=== PATIENT | male | born 1940 | race Caucasian/White ===

== ENCOUNTER 2022-06-01 14:37 | Emergency (ER) | payer MEDICARE, SELFPAY ==
[2022-06-01] VITALS (21 sets, daily range): BP systolic 121–201; BP diastolic 69–95; PULSE 60–82; RESP 12–24; TEMP 36.6; O2SAT 90–96; BMI 28.2
--- NOTE | 2022-06-01 14:49 | DI.RAD.S_ITS ---
PROCEDURE: XR CHEST 1V INDICATIONS: Possible stroke TECHNIQUE: One view of the chest was acquired. COMPARISON: None. FINDINGS: Surgical changes and devices: None. Lungs and pleura: There is mild pulmonary vascular congestion. No definite focal infiltrate. No pleural effusions or pneumothorax. Mediastinum: Mildly tortuous thoracic aorta is seen. Heart size is enlarged Bones and chest wall: No suspicious bony lesions. Overlying soft tissues appear unremarkable. IMPRESSION: Cardiomegaly and mild congestion. No focal infiltrate, pleural effusion or pneumothorax. Dictated by: Mau Raza M.D. on 06/01/2022 at 15:39 Approved by: Mau Raza M.D. on 06/01/2022 at 15:39
--- NOTE | 2022-06-01 14:50 | DI.CT.S_ITS ---
PROCEDURE: CT HEAD/BRAIN WO CON INDICATIONS: vomiting/ h/o CVA TECHNIQUE: Noncontrast 4.5 mm thick angled axial sections acquired from the foramen magnum to the vertex, with coronal and sagittal reformats. For radiation dose reduction, the following was used: automated exposure control, adjustment of mA and/or kV according to patient size. COMPARISON: None. FINDINGS: Image quality: Excellent. CSF spaces: Basal cisterns are patent. No extra-axial fluid collections. Ventricles are normal in size and shape. Brain: Atrophy and chronic white matter ischemic change noted. There is encephalomalacia and gliosis noted in the right occipital lobe. No mass effect or midline shift present. No intracranial hemorrhage. Old lacunar infarct noted in the left globus pallidus. Atherosclerotic calcification noted in both cavernous ICA as well as intradural vertebral arteries Skull and face: Calvarium and visualized facial bones are intact, without suspicious lesions. Sinuses: Mucosal debris and complete opacification noted involving the frontal, ethmoid and sphenoid sinuses with near complete opacification of the bilateral maxillary sinuses, partially imaged. IMPRESSION: 1. Atrophy and chronic ischemic change without intracranial hemorrhage or mass effect. 2. 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 Carlos mucosal sinus disease Approved by: Khai Cabrera M.D. on 06/01/2022 at 15:15
--- NOTE | 2022-06-01 14:53 | DI.RAD.S_ITS ---
PROCEDURE: XR SHOULDER RT MIN 2V INDICATIONS: fall, shoulder pain TECHNIQUE: 3 views of the shoulder were acquired. COMPARISON: None. FINDINGS: Bones: No fractures or dislocations. Moderate acromioclavicular joint and glenohumeral joint osteoarthritic changes are seen. No suspicious bony lesions. Visualized ribs appear intact. Soft tissues: No suspicious soft tissue calcifications. IMPRESSION: Moderate right shoulder joint osteoarthritis. No acute shoulder fracture or dislocation. No gross soft tissue abnormalities. Dictated by: Mau Raza M.D. on 06/01/2022 at 15:39 Approved by: Mau Raza M.D. on 06/01/2022 at 15:39
--- NOTE | 2022-06-01 14:54 | DI.CT.S_ITS ---
PROCEDURE: CT CERVICAL SPINE WO CON INDICATIONS: recent falls / vomiting TECHNIQUE: Noncontrast 3 mm thick sections acquired from the skull base to the T4 level. Sagittal and coronal reformats were then constructed. For radiation dose reduction, the following was used: automated exposure control, adjustment of mA and/or kV according to patient size. COMPARISON: None. FINDINGS: Image quality: Excellent. Bones: C6-7 interbody fusion without instrumentation. C5-6 and C7-T1 disc space narrowing. Hypertrophic facet joints and foraminal stenosis present throughout the exam. No fracture or traumatic malalignment. Craniovertebral relationships and bone mineralization unremarkable Soft tissues: Prevertebral soft tissues are normal in thickness. No paravertebral hematomas. No apical pneumothoraces. IMPRESSION: No evidence of fracture or traumatic malalignment. C6-7 interbody fusion without instrumentation. Associated degenerative disc disease and arthropathy. Approved by: Khai Cabrera M.D. on 06/01/2022 at 14:55
--- NOTE | 2022-06-01 14:57 | PC.NURSE ---
pt reports right sided shoulder pain and falling more often at home.
[2022-06-01 15:09] LABS: Add Manual Diff / Slide Review NO; Basophils Absolute Auto 0 /uL (0-100); Basophils Percent Auto 0.4 % (0-2); Eosinophils Absolute Auto 400 /uL (0-450); Eosinophils Percent Auto 4.2 % (2-4); Hematocrit 39.6 % (41-53); Hemoglobin 13.5 g/dL (13.5-17.5); Lymphocytes Absolute Auto 1400 /uL (1100-4500); Lymphocytes Percent Auto 16.1 % (25-40); Mean Corpuscular HGB Conc 34.1 % (30-36); Mean Corpuscular Hemoglobin 32.5 PG (26-34); Mean Corpuscular Volume 95.3 fL (80-100); Monocytes Absolute Auto 500 /uL (0-900); Monocytes Percent Auto 6.2 % (3-14); Neutrophils Absolute Auto 6500 /uL (1500-7000); Neutrophils Percent Auto 73.1 % (50-75); Platelet Count 197 X10^3/uL (150-400); Red Blood Cell Count 4.16 X10^6/uL (4.5-5.9); Red Cell Distribution Width 13.6 % (11.6-14.8); White Blood Cell Count 8.8 X10^3/uL (4.5-11.0)
[2022-06-01] MEDS: ONDANSETRON 4 MG/2 ML INJ IV (15:09)
[2022-06-01 15:23] LABS: PTT Partial Thromboplastin Tim 31 SECONDS (26-36)
[2022-06-01 16:07] LABS: Alanine Aminotransferase 18 IU/L (<50); Albumin 4.5 g/dL (3.5-5.0); Albumin Globulin Ratio 1.3 (1.0-2.8); Alkaline Phosphatase 55 U/L (38-126); Aspartate Aminotransferase 31 IU/L (17-59); BUN Creatinine Ratio 13.6 (6-22); Bilirubin Total 0.8 mg/dL (0.2-1.3); Blood Urea Nitrogen 8 mg/dL (9-20); Calcium 9.3 mg/dL (8.4-10.2); Carbon Dioxide 25 mmol/L (22-32); Chloride 94 mmol/L (98-107); Creatine Kinase 69 U/L (55-170); Estimated Glomerular Filt Rate > 60 mL/min (>60); Globulin 3.5 g/dL (1.7-4.1); Glucose 145 mg/dL (80-110); Magnesium 1.6 mg/dL (1.6-2.3); Potassium 4.2 mmol/L (3.4-5.1); Sodium 129 mmol/L (137-145)
[2022-06-01 16:09] LABS: HEMOLYSIS 55 (0-50)
[2022-06-01 16:18] LABS: Troponin I < 0.012 ng/mL (0.01-0.034)
--- NOTE | 2022-06-01 17:51 | DI.CT.S_ITS ---
PROCEDURE: CT ABDOMEN PELVIS W CON INDICATIONS: Vomiting TECHNIQUE: After the administration of intravenous contrast, axial sections acquired from the lung bases to the pubic symphysis. Coronal and sagittal reformats were performed. For radiation dose reduction, the following was used: automated exposure control, adjustment of mA and/or kV according to patient size. COMPARISON: None. FINDINGS: Image quality: There is a technical problem and the [id number] does not include the lower pelvis. Lung bases: Clear lung bases. Tiny hiatal hernia. Heart: Hyperdensity at the aortic valve. Coronary artery calcification. ABDOMEN:. Liver: Normal. Gallbladder: Vicarious excretion of contrast in the gallbladder versus dependent hyperdense sludge or stones. No wall thickening. Biliary ducts: Nondilated. Pancreas: Normal. Spleen: Normal size. Adrenal Glands: No nodules. Kidneys and Ureters: Symmetric enhancement. No nephrolithiasis or hydronephrosis. No hydroureter. Tiny left cortical cyst. Stomach and Bowel: The stomach is fluid-filled. No wall thickening or significant perigastric inflammation. No visible obstructing lesion. Small bowel is decompressed. No evidence of obstruction. The appendix is normal. The visible loops of colon are within normal limits. Peritoneum: No abnormal intraperitoneal fluid. No free air. Ventral Wall: No hernias. Abdominal Nodes: No retroperitoneal or mesenteric adenopathy by size criteria. Vessels: Aorta and inferior vena cava are normal in size. Mild abdominal aortic atherosclerotic calcification. PELVIS: Scan was inadvertently terminated early. The visible portion of the upper pelvis demonstrates normal urinary bladder wall thickness. No suspicious mass or adenopathy. Bones: Multilevel degenerative disc and endplate change throughout the spine.. IMPRESSION: 1. Fluid-filled stomach without thickened wall or evidence of bowel obstruction suggests gastroenteritis. 2. Dependent hyperdense sludge, gallstones, or vicarious excretion of IV contrast. Dictated by: Pegyg Novak M.D. on 06/01/2022 at 19:50 Approved by: Peggy Novak M.D. on 06/01/2022 at 19:55
--- NOTE | 2022-06-01 17:58 | ED_ITS ---
HPI - Nausea/Vomiting/Diarrhea <Angel Burgess PA-C - Last Filed: 06/01/22 20:34> General Chief complaint: Nausea/Vomiting/Diarrhea Stated complaint: vomited x 2, gen weakness Time Seen by Provider: 06/01/22 16:03 History of Present Illness HPI Narrative: This is a 81-year-old male presents to the emergency department due to multiple episodes of vomiting earlier today. He states he is concerned as that the patient had a stroke 3 years ago which presented only as vomiting causing him to be concerned that he maybe having a stroke today. Denies any chest pain, s hortness of breath, abdominal pain, fevers, dysuria, or any other concerning signs or symptoms. Does state that he has been falling more recently and has recently fallen on his right shoulder. Denies any residual deficits from the stroke 3 years ago. Related Data Previous Rx's Medication Instructions Recorded ondansetron 4 mg disintegrating 4 mg PO Q8H PRN nausea and 06/01/22 tablet vomiting #20 tabs Review of Systems <Angel Burgess PA-C - Last Filed: 06/01/22 20:34> Review of Systems Narrative: GENERAL: Denies chills, fatigue, malaise, fever, sweats. HEENT: Denies sinus pain, ear pain, sore throat, difficulty swallowing, dizziness. RESPIRATORY: Denies dyspnea, cough, wheezing, hemoptysis, sputum. CARDIOVASCULAR: Denies chest pain, palpitations, orthopnea, edema, GASTROINTESTINAL: Reports nausea, vomiting : Denies dysuria, frequency, incontinence, hematuria, urinary retention. MUSCULOSKELETAL: Reports right shoulder pain SKIN: Denies rash, skin lesions, or other NEUROLOGIC: Denies weakness, headache, numbness, change in speech, confusion, seizures, incoordination. PSYCHIATRIC: No concerning psychosocial issues. 12 point review of systems is negative except for those stated above Exam <Angel Burgess PA-C - Last Filed: 06/01/22 20:34> Narrative Exam Narrative: GENERAL: Well-developed patient, in mild distress. HEAD: Atraumatic. Normocephalic. EYES: Pupils equal round and reactive. Extraocular motions intact. No scleral icterus. No injection or drainage. ENT: Nose without bleeding, purulent drainage. Throat without erythema, tonsillar hypertrophy or exudate. Airway patent. NECK: Trachea midline. Non tender CARDIOVASCULAR: Regular rate and rhythm without murmurs, gallops, or rubs. RESPIRATORY: Clear to auscultation. Breath sounds equal bilaterally. No wheezes, rales, or rhonchi. GASTROINTESTINAL: Abdomen soft, non-tender, nondistended. EXTREMITIES: Moderate tenderness to palpation to right shoulder BACK: Nontender without deformity or crepitance. No flank tenderness. NEURO: AOx3. Cranial nerves 2-12 SKIN: No rash or erythema of visible areas Initial Vital Signs Initial Vital Signs: Vital Signs Temperature 97.9 F 06/01/22 14:42 Pulse Rate 62 06/01/22 14:42 Respiratory Rate 16 06/01/22 14:42 Blood Pressure 145/95 H 06/01/22 14:42 Pulse Oximetry 91 06/01/22 14:42 Oxygen Delivery Method Room Air 06/01/22 14:42 <Diya Snyder DO - Last Filed: 06/02/22 08:31> Initial Vital Signs Initial Vital Signs: Vital Signs Temperature 97.9 F 06/01/22 14:42 Pulse Rate 62 06/01/22 14:42 Respiratory Rate 16 06/01/22 14:42 Blood Pressure 145/95 H 06/01/22 14:42 Pulse Oximetry 91 06/01/22 14:42 Oxygen Delivery Method Room Air 06/01/22 14:42 Course <Angel Burgess PA-C - Last Filed: 06/01/22 20:34> Orders Ordered: Discontinued Medications Ondansetron HCl (Ondansetron 4 Mg Odt) 4 mg SL NOW PRN PRN Reason: Nausea And Vomiting Ondansetron HCl (Ondansetron 4 Mg/2 Ml Inj) 4 mg IV NOW PRN PRN Reason: Nausea And Vomiting Last Admin: 06/01/22 15:09 Dose: 4 mg Documented By: KOSTA Ondansetron HCl (Ondansetron 4 Mg Odt Prepack) 1 bottle MIS SEEINSTR ONE Stop: 06/01/22 21:23 Last Admin: 06/01/22 21:26 Dose: 1 bottle Documented By: MARGA Vital Signs Vital signs: Vital Signs - 8 hr 06/01/22 14:42 06/01/22 14:43 06/01/22 15:24 Temperature 97.9 F Pulse Rate 62 82 66 Respiratory Rate 16 19 Blood Pressure 145/95 H Pulse Oximetry 91 95 96 Oxygen Delivery Method Room Air Room Air 06/01/22 15:30 06/01/22 15:53 06/01/22 15:53 Temperature Pulse Rate 68 64 Respiratory Rate 23 21 Blood Pressure 201/89 H Pulse Oximetry 95 95 Oxygen Delivery Method 06/01/22 16:00 06/01/22 16:30 06/01/22 16:39 Temperature Pulse Rate 63 62 62 Respiratory Rate 22 18 21 Blood Pressure Pulse Oximetry 95 94 92 Oxygen Delivery Method 06/01/22 16:39 06/01/22 17:00 06/01/22 17:01 Temperature Pulse Rate 60 Respiratory Rate 16 Blood Pressure 154/69 H 192/81 H Pulse Oximetry 92 Oxygen Delivery Method 06/01/22 17:01 06/01/22 17:30 06/01/22 17:31 Temperature Pulse Rate 61 64 61 Respiratory Rate 12 22 20 Blood Pressure Pulse Oximetry 90 L 93 93 Oxygen Delivery Method 06/01/22 17:31 06/01/22 18:48 06/01/22 18:51 Temperature Pulse Rate 73 Respiratory Rate Blood Pressure 174/74 H 176/81 H Pulse Oximetry 92 Oxygen Delivery Method 06/01/22 18:51 06/01/22 19:00 Temperature Pulse Rate 73 74 Respiratory Rate 19 15 Blood Pressure Pulse Oximetry 95 95 Oxygen Delivery Method Room Air <Diya Snyder DO - Last Filed: 06/02/22 08:31> Orders Ordered: Discontinued Medications Ondansetron HCl (Ondansetron 4 Mg Odt) 4 mg SL NOW PRN PRN Reason: Nausea And Vomiting Ondansetron HCl (Ondansetron 4 Mg/2 Ml Inj) 4 mg IV NOW PRN PRN Reason: Nausea And Vomiting Last Admin: 06/01/22 15:09 Dose: 4 mg Documented By: KOSTA Ondansetron HCl (Ondansetron 4 Mg Odt Prepack) 1 bottle MISC SEEINSTR ONE Stop: 06/01/22 21:23 Last Admin: 06/01/22 21:26 Dose: 1 bottle Documented By: MARGA Vital Signs Vital signs: Vital Signs - 8 hr 06/01/22 14:42 06/01/22 14:43 06/01/22 15:24 Temperature 97.9 F Pulse Rate 62 82 66 Respiratory Rate 16 19 Blood Pressure 145/95 H Pulse Oximetry 91 95 96 Oxygen Delivery Method Room Air Room Air 06/01/22 15:30 06/01/22 15:53 06/01/22 15:53 Temperature Pulse Rate 68 64 Respiratory Rate 23 21 Blood Pressure 201/89 H Pulse Oximetry 95 95 Oxygen Delivery Method 06/01/22 16:00 06/01/22 16:30 06/01/22 16:39 Temperature Pulse Rate 63 62 62 Respiratory Rate 22 18 21 Blood Pressure Pulse Oximetry 95 94 92 Oxygen Delivery Method 06/01/22 16:39 06/01/22 17:00 06/01/22 17:01 Temperature Pulse Rate 60 Respiratory Rate 16 Blood Pressure 154/69 H 192/81 H Pulse Oximetry 92 Oxygen Delivery Method 06/01/22 17:01 06/01/22 17:30 06/01/22 17:31 Temperature Pulse Rate 61 64 61 Respiratory Rate 12 22 20 Blood Pressure Pulse Oximetry 90 L 93 93 Oxygen Delivery Method 06/01/22 17:31 06/01/22 18:48 06/01/22 18:51 Temperature Pulse Rate 73 Respiratory Rate Blood Pressure 174/74 H 176/81 H Pulse Oximetry 92 Oxygen Delivery Method 06/01/22 18:51 06/01/22 19:00 Temperature Pulse Rate 73 74 Respiratory Rate 19 15 Blood Pressure Pulse Oximetry 95 95 Oxygen Delivery Method Room Air MDM - Nausea/Vomiting/Diarrhea <Angel Burgess PA-C - Last Filed: 06/01/22 20:34> Lab Data 06/01/22 14:44 06/01/22 15:49 Labs: Lab Results 06/01/22 06/01/22 06/01/22 Range/Units 14:44 14:44 15:49 WBC 8.8 (4.5-11.0) X10^3/uL RBC 4.16 L (4.5-5.9) X10^6/uL Hgb 13.5 (13.5-17.5) g/dL Hct 39.6 L (41-53) % MCV 95.3 (80-100) fL MCH 32.5 (26-34) PG MCHC 34.1 (30-36) % RDW 13.6 (11.6-14.8) % Plt Count 197 (150-400) X10^3/uL Neut % (Auto) 73.1 (50-75) % Lymph % (Auto) 16.1 L (25-40) % [place] % (Auto) 6.2 (3-14) % Eos % (Auto) 4.2 H (2-4) % Baso % (Auto) 0.4 (0-2) % Neut # (Auto) 6500 (4859-3226) /uL Lymph # (Auto) 1400 (9316-7445) /uL [place] # (Auto) 500 (0-900) /uL Eos # (Auto) 400 (0-450) /uL Baso # (Auto) 0 (0-100) /uL PT 12.0 (10.1-12.7) SECONDS INR 1.0 (0.9-1.3) APTT 31 (26-36) SECONDS Sodium 129 L (137-145) mmol/L Potassium 4.2 (3.4-5.1) mmol/L Chloride 94 L (98-107) mmol/L Carbon Dioxide 25 (22-32) mmol/L BUN 8 L (9-20) mg/dL Creatinine 0.59 L (0.66-1.25) mg/dL Estimated GFR > 60 (>60) mL/min BUN/Creatinine Ratio 13.6 (6-22) Glucose 145 H (80-110) mg/dL Lactate (0.7-2.1) mmol/L Calcium 9.3 (8.4-10.2) mg/dL Magnesium 1.6 (1.6-2.3) mg/dL Total Bilirubin 0.8 (0.2-1.3) mg/dL AST 31 (17-59) IU/L ALT 18 (<50) IU/L Alkaline Phosphatase 55 (38-126) U/L Total Creatine Kinase 69 (55-170) U/L CK-MB (CK-2) TNP CK-MB (CK-2) Rel Index TNP Troponin I < 0.012 (0.01-0.034) ng/mL Total Protein 8.0 (6.3-8.2) g/dL Albumin 4.5 (3.5-5.0) g/dL Globulin 3.5 (1.7-4.1) g/dL Albumin/Globulin Ratio 1.3 (1.0-2.8) Lipase (23-300) U/L Urine Color Urine Appearance Urine pH (4.5-8.0) Ur Specific [place] (1.000-1.035) Urine Protein (Negative) Urine Glucose (UA) (Negative) g/dL Urine Ketones (NEGATIVE) Urine Occult Blood (Negative) Urine Nitrate (Negative) Urine Bilirubin (NEGATIVE) Urine Urobilinogen (0.2) E.U./dL Ur Leukocyte Esterase (NEGATIVE) Urine RBC (0-5/HPF) Urine WBC (0-5/HPF) Ur Squamous Epith Cells (0-5/HPF) Other Crystals Urine Bacteria (None) Ur Culture Indicated? U Opiates 300ng/mL cut (Negative) Ur Oxycodone Screen (Negative) Urine Methadone Screen (Negative) Ur Barbiturates Screen (Negative) U Tricyclic Antidepress (Negative) Ur Phencyclidine Scrn (Negative) Ur Amphetamines Screen (Negative) U Methamphetamines Scrn (Negative) Ur MDMA Scrn (Ecstasy) (Negative) U Benzodiazepines Scrn (Negative) Urine Cocaine Screen (Negative) U Marijuana (THC) Screen (Negative) SARS-CoV-2 (PCR) (Negative) Influenza A (RT-PCR) (NEGATIVE) Influenza B (RT-PCR) (NEGATIVE) RSV (PCR) (Negative) 06/01/22 06/01/22 06/01/22 Range/Units 18:40 18:40 18:40 WBC (4.5-11.0) X10^3/uL RBC (4.5-5.9) X10^6/uL Hgb (13.5-17.5) g/dL Hct (41-53) % MCV (80-100) fL MCH (26-34) PG MCHC (30-36) % RDW (11.6-14.8) % Plt Count (150-400) X10^3/uL Neut % (Auto) (50-75) % Lymph % (Auto) (25-40) % [place] % (Auto) (3-14) % Eos % (Auto) (2-4) % Baso % (Auto) (0-2) % Neut # (Auto) (3920-7963) /uL Lymph # (Auto) (6904-3610) /uL [place] # (Auto) (0-900) /uL Eos # (Auto) (0-450) /uL Baso # (Auto) (0-100) /uL PT (10.1-12.7) SECONDS INR (0.9-1.3) APTT (26-36) SECONDS Sodium (137-145) mmol/L Potassium (3.4-5.1) mmol/L Chloride (98-107) mmol/L Carbon Dioxide (22-32) mmol/L BUN (9-20) mg/dL Creatinine (0.66-1.25) mg/dL Estimated GFR (>60) mL/min BUN/Creatinine Ratio (6-22) Glucose (80-110) mg/dL Lactate 1.4 (0.7-2.1) mmol/L Calcium (8.4-10.2) mg/dL Magnesium (1.6-2.3) mg/dL Total Bilirubin (0.2-1.3) mg/dL AST (17-59) IU/L ALT (<50) IU/L Alkaline Phosphatase (38-126) U/L Total Creatine Kinase (55-170) U/L CK-MB (CK-2) CK-MB (CK-2) Rel Index Troponin I < 0.012 (0.01-0.034) ng/mL Total Protein (6.3-8.2) g/dL Albumin (3.5-5.0) g/dL Globulin (1.7-4.1) g/dL Albumin/Globulin Ratio (1.0-2.8) Lipase 108 (23-300) U/L Urine Color Urine Appearance Urine pH (4.5-8.0) Ur Specific [place] (1.000-1.035) Urine Protein (Negative) Urine Glucose (UA) (Negative) g/dL Urine Ketones (NEGATIVE) Urine Occult Blood (Negative) Urine Nitrate (Negative) Urine Bilirubin (NEGATIVE) Urine Urobilinogen (0.2) E.U./dL Ur Leukocyte Esterase (NEGATIVE) Urine RBC (0-5/HPF) Urine WBC (0-5/HPF) Ur Squamous Epith Cells (0-5/HPF) Other Crystals Urine Bacteria (None) Ur Culture Indicated? U Opiates 300ng/mL cut (Negative) Ur Oxycodone Screen (Negative) Urine Methadone Screen (Negative) Ur Barbiturates Screen (Negative) U Tricyclic Antidepress (Negative) Ur Phencyclidine Scrn (Negative) Ur Amphetamines Screen (Negative) U Methamphetamines Scrn (Negative) Ur MDMA Scrn (Ecstasy) (Negative) U Benzodiazepines Scrn (Negative) Urine Cocaine Screen (Negative) U Marijuana (THC) Screen (Negative) SARS-CoV-2 (PCR) Negative (Negative) Influenza A (RT-PCR) Flu a negative (NEGATIVE) Influenza B (RT-PCR) Flu b negative (NEGATIVE) RSV (PCR) Negative (Negative) 06/01/22 06/01/22 Range/Units 19:15 19:15 WBC (4.5-11.0) X10^3/uL RBC (4.5-5.9) X10^6/uL Hgb (13.5-17.5) g/dL Hct (41-53) % MCV (80-100) fL MCH (26-34) PG MCHC (30-36) % RDW (11.6-14.8) % Plt Count (150-400) X10^3/uL Neut % (Auto) (50-75) % Lymph % (Auto) (25-40) % [place] % (Auto) (3-14) % Eos % (Auto) (2-4) % Baso % (Auto) (0-2) % Neut # (Auto) (2256-1661) /uL Lymph # (Auto) (6022-5773) /uL [place] # (Auto) (0-900) /uL Eos # (Auto) (0-450) /uL Baso # (Auto) (0-100) /uL PT (10.1-12.7) SECONDS INR (0.9-1.3) APTT (26-36) SECONDS Sodium (137-145) mmol/L Potassium (3.4-5.1) mmol/L Chloride (98-107) mmol/L Carbon Dioxide (22-32) mmol/L BUN (9-20) mg/dL Creatinine (0.66-1.25) mg/dL Estimated GFR (>60) mL/min BUN/Creatinine Ratio (6-22) Glucose (80-110) mg/dL Lactate (0.7-2.1) mmol/L Calcium (8.4-10.2) mg/dL Magnesium (1.6-2.3) mg/dL Total Bilirubin (0.2-1.3) mg/dL AST (17-59) IU/L ALT (<50) IU/L Alkaline Phosphatase (38-126) U/L Total Creatine Kinase (55-170) U/L CK-MB (CK-2) CK-MB (CK-2) Rel Index Troponin I (0.01-0.034) ng/mL Total Protein (6.3-8.2) g/dL Albumin (3.5-5.0) g/dL Globulin (1.7-4.1) g/dL Albumin/Globulin Ratio (1.0-2.8) Lipase (23-300) U/L Urine Color Yellow Urine Appearance Sl cloudy Urine pH 8.0 (4.5-8.0) Ur Specific [place] 1.015 (1.000-1.035) Urine Protein Negative (Negative) Urine Glucose (UA) Negative (Negative) g/dL Urine Ketones Trace H (NEGATIVE) Urine Occult Blood Negative (Negative) Urine Nitrate Negative (Negative) Urine Bilirubin Negative (NEGATIVE) Urine Urobilinogen 0.2 (0.2) E.U./dL Ur Leukocyte Esterase Negative (NEGATIVE) Urine RBC 0-1/hpf (0-5/HPF) Urine WBC 0-1/hpf (0-5/HPF) Ur Squamous Epith Cells None seen (0-5/HPF) Other Crystals 2+ amorphous Urine Bacteria None seen (None) Ur Culture Indicated? Cult not indicated U Opiates 300ng/mL cut Negative (Negative) Ur Oxycodone Screen Negative (Negative) Urine Methadone Screen Negative (Negative) Ur Barbiturates Screen Negative (Negative) U Tricyclic Antidepress Negative (Negative) Ur Phencyclidine Scrn Negative (Negative) Ur Amphetamines Screen Negative (Negative) U Methamphetamines Scrn Negative (Negative) Ur MDMA Scrn (Ecstasy) Negative (Negative) U Benzodiazepines Scrn Negative (Negative) Urine Cocaine Screen Negative (Negative) U Marijuana (THC) Screen Negative (Negative) SARS-CoV-2 (PCR) (Negative) Influenza A (RT-PCR) (NEGATIVE) Influenza B (RT-PCR) (NEGATIVE) RSV (PCR) (Negative) Point of Care Testing Glucose POC [address] scan - head: Radiologist's Impression: PROCEDURE: CT HEAD/BRAIN WO CON INDICATIONS: vomiting/ h/o CVA TECHNIQUE: Noncontrast 4.5 mm thick angled axial sections acquired from the foramen magnum to the vertex, with coronal and sagittal reformats. For radiation dose reduction, the following was used: automated exposure control, adjustment of mA and/or kV according to patient size. COMPARISON: None. FINDINGS: Image quality: Excellent. CSF spaces: Basal cisterns are patent. No extra-axial fluid collections. Ventricles are normal in size and shape. Brain: Atrophy and chronic white matter ischemic change noted. There is encephalomalacia and gliosis noted in the right occipital lobe. No mass effect or midline shift present. No intracranial hemorrhage. Old lacunar infarct noted in the left globus pallidus. Atherosclerotic calcification noted in both cavernous ICA as well as intradural vertebral arteries Skull and face: Calvarium and visualized facial bones are intact, without suspicious lesions. Sinuses: Mucosal debris and complete opacification noted involving the frontal, ethmoid and sphenoid sinuses with near complete opacification of the bilateral maxillary sinuses, partially imaged. IMPRESSION: 1. Atrophy and chronic ischemic change without intracranial hemorrhage or mass effect. 2. 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 Carlos mucosal sinus disease Approved by: Khai Cabrera M.D. on 06/01/2022 at 15:15 CT - cervical spine: Radiologist's Impression: [address] Scan ReportSigned Patient: Mando FieldsMR#: [id number]: 3Acct:[id number]/Sex: 81 / MDate of Service: 06/01/22Loc: EDAccession Number: [id number] Procedure: CT cervical spine wo con Ordering Provider: Diya Snyder D.O. PROCEDURE: CT CERVICAL SPINE WO CON INDICATIONS: recent falls / vomiting TECHNIQUE: Noncontrast 3 mm thick sections acquired from the skull base to the T4 level. Sagittal and coronal reformats were then constructed. For radiation dose reduction, the following was used: automated exposure control, adjustment of mA and/or kV according to patient size. COMPARISON: None. FINDINGS: Image quality: Excellent. Bones: C6-7 interbody fusion without instrumentation. C5-6 and C7-T1 disc spa ce narrowing. Hypertrophic facet joints and foraminal stenosis present throughout the exam. No fracture or traumatic malalignment. Craniovertebral relationships and bone mineralization unremarkable Soft tissues: Prevertebral soft tissues are normal in thickness. No paravertebral hematomas. No apical pneumothoraces. IMPRESSION: No evidence of fracture or traumatic malalignment. C6-7 interbody fusion without instrumentation. Associated degenerative disc disease and arthropathy. Extremity x-ray #1: Radiologist's Impression: [address] [id number] ReportSigned Patient: Mando FieldsMR#: [id number]: 1940t:[id number]/Sex: 81 / MDate of Service: 06/01/22Loc: EDAccession Number: [id number] Procedure: XR shoulder RT min 2V Ordering Provider: Diya Snyder D.O. PROCEDURE: XR SHOULDER RT MIN 2V INDICATIONS: fall, shoulder pain TECHNIQUE: 3 views of the shoulder were acquired. COMPARISON: None. FINDINGS: Bones: No fractures or dislocations. Moderate acromioclavicular joint and glenohumeral joint osteoarthritic changes are seen. No suspicious bony lesions. Visualized ribs appear intact. Soft tissues: No suspicious soft tissue calcifications. IMPRESSION: Moderate right shoulder joint osteoarthritis. No acute shoulder fracture or dislocation. No gross soft tissue abnormalities. Dictated by: Mau Raza M.D. on 06/01/2022 at 15:39 Approved by: Mau Raza M.D. on 06/01/2022 at 15:39 Chest x-ray: Radiologist's Impression: [address] [id number] ReportSigned Patient: Mando Fields#: [id number]: 1940cct:[id number]/Sex: 81 / MDate of Service: 06/01/22Loc: EDAccession Number: [id number] Procedure: XR chest 1V Ordering Provider: Diya Snyder D.O. PROCEDURE: XR CHEST 1V INDICATIONS: Possible stroke TECHNIQUE: One view of the chest was acquired. COMPARISON: None. FINDINGS: Surgical changes and devices: None. Lungs and pleura: There is mild pulmonary vascular congestion. No definite focal infiltrate. No pleural effusions or pneumothorax. Mediastinum: Mildly tortuous thoracic aorta is seen. Heart size is enlarged Bones and chest wall: No suspicious bony lesions. Overlying soft tissues appear unremarkable. IMPRESSION: Cardiomegaly and mild congestion. No focal infiltrate, pleural effusion or pneumothorax. Dictated by: Mau Raza M.D. on 06/01/2022 at 15:39 Approved by: Mau Raza M.D. on 06/01/2022 at 15:39 CT scan - abdomen/pelvis: Radiologist's Impression: [address] [id number] [address] Scan Report Signed Patient: Mando Fields MR#: [id number] : 1940 Acct:[id number] Age/Sex: 81 / M Date of Service: 06/01/22 Loc: ED Accession Number: [id number] ?? Procedure: CT abdomen pelvis w con Ordering Provider: Angel Burgess P.A-C PROCEDURE:? CT ABDOMEN PELVIS W CON ? INDICATIONS:? Vomiting ? TECHNIQUE:? After the administration of intravenous contrast, axial sections acquired from the lung bases to the pubic symphysis.? Coronal and sagittal reformats were performed.? For radiation dose reduction, the following was used:? automated exposure control, adjustment of mA and/or kV according to patient size.? ? COMPARISON:? None. ? FINDINGS:? Image quality:? There is a technical problem and the [id number] does not include the lower pelvis. ? Lung bases:? Clear lung bases.? Tiny hiatal hernia. Heart:? Hyperdensity at the aortic valve.? Coronary artery calcification. ? ABDOMEN:. Liver:? Normal. Gallbladder:? Vicarious excretion of contrast in the gallbladder versus dependent hyperdense sludge or stones.? No wall thickening. Biliary ducts:? Nondilated. Pancreas:? Normal. Spleen:? Normal size. Adrenal Glands:? No nodules. Kidneys and Ureters: Symmetric enhancement.? No nephrolithiasis or hyd ronephrosis.? No hydroureter.? Tiny left cortical cyst. ? Stomach and Bowel:? The stomach is fluid-filled.? No wall thickening or significant perigastric inflammation.? No visible obstructing lesion.? Small bowel is decompressed.? No evidence of obstruction.? The appendix is normal.? The visible loops of colon are within normal limits. Peritoneum:? No abnormal intraperitoneal fluid.? No free air.? ? Ventral Wall: ? No hernias.? Abdominal Nodes:? No retroperitoneal or mesenteric adenopathy by size criteria.? Vessels:? Aorta and inferior vena cava are normal in size.? Mild abdominal aortic atherosclerotic calcification. ? PELVIS:? Scan was inadvertently terminated early.? The visible portion of the upper pelvis demonstrates normal urinary bladder wall thickness.? No suspicious mass or adenopathy.? ? Bones:? Multilevel degenerative disc and endplate change throughout the spine..? IMPRESSION:? ? 1. Fluid-filled stomach without thickened wall or evidence of bowel obstruction suggests gastroenteritis. ? 2. Dependent hyperdense sludge, gallstones, or vicarious excretion of IV contrast. ? ? Dictated by: Peggy Novak M.D. on 06/01/2022 at 19:50 ? ? Approved by: Peggy Novak M.D. on 06/01/2022 at 19:55 ? ECG Data Interpretation: 1539 EKG is normal sinus rhythm rate 67 beats per minute and free of any signs of ischemia or ectopy. No ST segmental elevation or depression. T-wave inversions in lead 3 1842 EKG is normal sinus rhythm rate 73 and free of any signs of ischemia or ectopy. No ST segmental elevation or depression. T-wave inversions in lead 3, unchanged from prior MDM Narrative Medical decision making narrative: MDM * differential diagnosis includes but not limited to viral URI, COVID-19, CVA, ACS, gastroenteritis, appendicitis, colitis, UTI * Prior records reviewed: Patient has no prior records to review. * My lab interpretation: No leukocytosis, no anemia, patient was mildly hyponatremic although suspect that not hyponatremic enough to cause these symptoms described. UA negative for UTI. Tox screen negative * My imgaing interpretation: Abdomen and pelvis CT positive for gastroenteritis. C-spine CT and head CT were ordered due to possible stroke and reported fall which were both negative for CVA and C-spine injury. Right shoulder x-ray negative for fracture and chest x-ray negative for any other abnormal pathology. * Clinical Decision Rules/Scores evaluated: None * Independent discussions with: None ED Course: This is a 81-year-old male presenting primarily due to 2 episodes of vomiting prior to arrival. Patient was primarily concerned as he report having a stroke 3 years ago that present only as vomiting. CT head was normal and patient had a completely normal neuro exam. Cranial nerves 2-12 intact. Patient's lab work was also not concerning. He did have mild hyponatremia alth ough do not suspect that this was the cause of the patient's vomiting. CT abdomen and pelvis was ordered to further investigate the vomiting which showed evidence of gastroenteritis which maybe the cause. Patient also repeat swelling more often with some right shoulder pain and some neck pain. Right shoulder x- ray and cervical CT were negative for any fractures. Due to lack of fevers or blood in the stool low suspicion for bacterial gastroenteritis. Suspect viral nature which should improve over time. Recommended bland diet and plenty of liquids. Patient was comfortable with the plan. We will be prescribed nausea medication on discharge. Shared Decision Making: Discussed plan with patient and son who were both comfortable with the plan for discharge Social Considerations: None Disposition: Discharged to home <Diya Snyder DO - Last Filed: 06/02/22 08:31> Lab Data Labs: Lab Results 06/01/22 06/01/22 06/01/22 Range/Units 14:44 14:44 15:49 WBC 8.8 (4.5-11.0) X10^3/uL RBC 4.16 L (4.5-5.9) X10^6/uL Hgb 13.5 (13.5-17.5) g/dL Hct 39.6 L (41-53) % MCV 95.3 (80-100) fL MCH 32.5 (26-34) PG MCHC 34.1 (30-36) % RDW 13.6 (11.6-14.8) % Plt Count 197 (150-400) X10^3/uL Neut % (Auto) 73.1 (50-75) % Lymph % (Auto) 16.1 L (25-40) % [place] % (Auto) 6.2 (3-14) % Eos % (Auto) 4.2 H (2-4) % Baso % (Auto) 0.4 (0-2) % Neut # (Auto) 6500 (5423-4666) /uL Lymph # (Auto) 1400 (5274-4767) /uL [place] # (Auto) 500 (0-900) /uL Eos # (Auto) 400 (0-450) /uL Baso # (Auto) 0 (0-100) /uL PT 12.0 (10.1-12.7) SECONDS INR 1.0 (0.9-1.3) APTT 31 (26-36) SECONDS Sodium 129 L (137-145) mmol/L Potassium 4.2 (3.4-5.1) mmol/L Chloride 94 L (98-107) mmol/L Carbon Dioxide 25 (22-32) mmol/L BUN 8 L (9-20) mg/dL Creatinine 0.59 L (0.66-1.25) mg/dL Estimated GFR > 60 (>60) mL/min BUN/Creatinine Ratio 13.6 (6-22) Glucose 145 H (80-110) mg/dL Lactate (0.7-2.1) mmol/L Calcium 9.3 (8.4-10.2) mg/dL Magnesium 1.6 (1.6-2.3) mg/dL Total Bilirubin 0.8 (0.2-1.3) mg/dL AST 31 (17-59) IU/L ALT 18 (<50) IU/L Alkaline Phosphatase 55 (38-126) U/L Total Creatine Kinase 69 (55-170) U/L CK-MB (CK-2) TNP CK-MB (CK-2) Rel Index TNP Troponin I < 0.012 (0.01-0.034) ng/mL Total Protein 8.0 (6.3-8.2) g/dL Albumin 4.5 (3.5-5.0) g/dL Globulin 3.5 (1.7-4.1) g/dL Albumin/Globulin Ratio 1.3 (1.0-2.8) Lipase (23-300) U/L Urine Color Urine Appearance Urine pH (4.5-8.0) Ur Specific [place] (1.000-1.035) Urine Protein (Negative) Urine Glucose (UA) (Negative) g/dL Urine Ketones (NEGATIVE) Urine Occult Blood (Negative) Urine Nitrate (Negative) Urine Bilirubin (NEGATIVE) Urine Urobilinogen (0.2) E.U./dL Ur Leukocyte Esterase (NEGATIVE) Urine RBC (0-5/HPF) Urine WBC (0-5/HPF) Ur Squamous Epith Cells (0-5/HPF) Other Crystals Urine Bacteria (None) Ur Culture Indicated? U Opiates 300ng/mL cut (Negative) Ur Oxycodone Screen (Negative) Urine Methadone Screen (Negative) Ur Barbiturates Screen (Negative) U Tricyclic Antidepress (Negative) Ur Phencyclidine Scrn (Negative) Ur Amphetamines Screen (Negative) U Methamphetamines Scrn (Negative) Ur MDMA Scrn (Ecstasy) (Negative) U Benzodiazepines Scrn (Negative) Urine Cocaine Screen (Negative) U Marijuana (THC) Screen (Negative) SARS-CoV-2 (PCR) (Negative) Influenza A (RT-PCR) (NEGATIVE) Influenza B (RT-PCR) (NEGATIVE) RSV (PCR) (Negative) 06/01/22 06/01/22 06/01/22 Range/Units 18:40 18:40 18:40 WBC (4.5-11.0) X10^3/uL RBC (4.5-5.9) X10^6/uL Hgb (13.5-17.5) g/dL Hct (41-53) % MCV (80-100) fL MCH (26-34) PG MCHC (30-36) % RDW (11.6-14.8) % Plt Count (150-400) X10^3/uL Neut % (Auto) (50-75) % Lymph % (Auto) (25-40) % [place] % (Auto) (3-14) % Eos % (Auto) (2-4) % Baso % (Auto) (0-2) % Neut # (Auto) (3153-3908) /uL Lymph # (Auto) (0590-6383) /uL [place] # (Auto) (0-900) /uL Eos # (Auto) (0-450) /uL Baso # (Auto) (0-100) /uL PT (10.1-12.7) SECONDS INR (0.9-1.3) APTT (26-36) SECONDS Sodium (137-145) mmol/L Potassium (3.4-5.1) mmol/L Chloride (98-107) mmol/L Carbon Dioxide (22-32) mmol/L BUN (9-20) mg/dL Creatinine (0.66-1.25) mg/dL Estimated GFR (>60) mL/min BUN/Creatinine Ratio (6-22) Glucose (80-110) mg/dL Lactate 1.4 (0.7-2.1) mmol/L Calcium (8.4-10.2) mg/dL Magnesium (1.6-2.3) mg/dL Total Bilirubin (0.2-1.3) mg/dL AST (17-59) IU/L ALT (<50) IU/L Alkaline Phosphatase (38-126) U/L Total Creatine Kinase (55-170) U/L CK-MB (CK-2) CK-MB (CK-2) Rel Index Troponin I < 0.012 (0.01-0.034) ng/mL Total Protein (6.3-8.2) g/dL Albumin (3.5-5.0) g/dL Globulin (1.7-4.1) g/dL Albumin/Globulin Ratio (1.0-2.8) Lipase 108 (23-300) U/L Urine Color Urine Appearance Urine pH (4.5-8.0) Ur Specific [place] (1.000-1.035) Urine Protein (Negative) Urine Glucose (UA) (Negative) g/dL Urine Ketones (NEGATIVE) Urine Occult Blood (Negative) Urine Nitrate (Negative) Urine Bilirubin (NEGATIVE) Urine Urobilinogen (0.2) E.U./dL Ur Leukocyte Esterase (NEGATIVE) Urine RBC (0-5/HPF) Urine WBC (0-5/HPF) Ur Squamous Epith Cells (0-5/HPF) Other Crystals Urine Bacteria (None) Ur Culture Indicated? U Opiates 300ng/mL cut (Negative) Ur Oxycodone Screen (Negative) Urine Methadone Screen (Negative) Ur Barbiturates Screen (Negative) U Tricyclic Antidepress (Negative) Ur Phencyclidine Scrn (Negative) Ur Amphetamines Screen (Negative) U Methamphetamines Scrn (Negative) Ur MDMA Scrn (Ecstasy) (Negative) U Benzodiazepines Scrn (Negative) Urine Cocaine Screen (Negative) U Marijuana (THC) Screen (Negative) SARS-CoV-2 (PCR) Negative (Negative) Influenza A (RT-PCR) Flu a negative (NEGATIVE) Influenza B (RT-PCR) Flu b negative (NEGATIVE) RSV (PCR) Negative (Negative) 06/01/22 06/01/22 Range/Units 19:15 19:15 WBC (4.5-11.0) X10^3/uL RBC (4.5-5.9) X10^6/uL Hgb (13.5-17.5) g/dL Hct (41-53) % MCV (80-100) fL MCH (26-34) PG MCHC (30-36) % RDW (11.6-14.8) % Plt Count (150-400) X10^3/uL Neut % (Auto) (50-75) % Lymph % (Auto) (25-40) % [place] % (Auto) (3-14) % Eos % (Auto) (2-4) % Baso % (Auto) (0-2) % Neut # (Auto) (1919-9015) /uL Lymph # (Auto) (5894-4502) /uL [place] # (Auto) (0-900) /uL Eos # (Auto) (0-450) /uL Baso # (Auto) (0-100) /uL PT (10.1-12.7) SECONDS INR (0.9-1.3) APTT (26-36) SECONDS Sodium (137-145) mmol/L Potassium (3.4-5.1) mmol/L Chloride (98-107) mmol/L Carbon Dioxide (22-32) mmol/L BUN (9-20) mg/dL Creatinine (0.66-1.25) mg/dL Estimated GFR (>60) mL/min BUN/Creatinine Ratio (6-22) Glucose (80-110) mg/dL Lactate (0.7-2.1) mmol/L Calcium (8.4-10.2) mg/dL Magnesium (1.6-2.3) mg/dL Total Bilirubin (0.2-1.3) mg/dL AST (17-59) IU/L ALT (<50) IU/L Alkaline Phosphatase (38-126) U/L Total Creatine Kinase (55-170) U/L CK-MB (CK-2) CK-MB (CK-2) Rel Index Troponin I (0.01-0.034) ng/mL Total Protein (6.3-8.2) g/dL Albumin (3.5-5.0) g/dL Globulin (1.7-4.1) g/dL Albumin/Globulin Ratio (1.0-2.8) Lipase (23-300) U/L Urine Color Yellow Urine Appearance Sl cloudy Urine pH 8.0 (4.5-8.0) Ur Specific [place] 1.015 (1.000-1.035) Urine Protein Negative (Negative) Urine Glucose (UA) Negative (Negative) g/dL Urine Ketones Trace H (NEGATIVE) Urine Occult Blood Negative (Negative) Urine Nitrate Negative (Negative) Urine Bilirubin Negative (NEGATIVE) Urine Urobilinogen 0.2 (0.2) E.U./dL Ur Leukocyte Esterase Negative (NEGATIVE) Urine RBC 0-1/hpf (0-5/HPF) Urine WBC 0-1/hpf (0-5/HPF) Ur Squamous Epith Cells None seen (0-5/HPF) Other Crystals 2+ amorphous Urine Bacteria None seen (None) Ur Culture Indicated? Cult not indicated U Opiates 300ng/mL cut Negative (Negative) Ur Oxycodone Screen Negative (Negative) Urine Methadone Screen Negative (Negative) Ur Barbiturates Screen Negative (Negative) U Tricyclic Antidepress Negative (Negative) Ur Phencyclidine Scrn Negative (Negative) Ur Amphetamines Screen Negative (Negative) U Methamphetamines Scrn Negative (Negative) Ur MDMA Scrn (Ecstasy) Negative (Negative) U Benzodiazepines Scrn Negative (Negative) Urine Cocaine Screen Negative (Negative) U Marijuana (THC) Screen Negative (Negative) SARS-CoV-2 (PCR) (Negative) Influenza A (RT-PCR) (NEGATIVE) Influenza B (RT-PCR) (NEGATIVE) RSV (PCR) (Negative) Point of Care Testing Glucose POC 132 ECG Data Interpretation: 1539 EKG is normal sinus rhythm rate 67 beats per minute and free of any signs of ischemia or ectopy. No ST segmental elevation or depression. T-wave inve rsions in lead 3 1842 EKG is normal sinus rhythm rate 73 and free of any signs of ischemia or ectopy. No ST segmental elevation or depression. T-wave inversions in lead 3, unchanged from prior [place]: EKG 1 sinus rhythm T-wave inverted [address] changes otherwise appreciated. No priors for comparison. EKG 2. Rate of 73 OH 196 QRS is 74 QTC of 425. Patient has no dynamic changes appreciated appear similar to prior EKG from earlier today. Discharge Plan Departure Patient Disposition: Home Clinical Impression: Gastroenteritis Instructions: DI for Viral Gastroenteritis -- Adult Activity Restrictions/Additional Instructions: Thank you for coming to the [facility] Emergency Department today. As we discussed your workup was overall very reassuring. CT head showed no abnorma lities in the brain. The neck CT showed no fractures. Right shoulder x-ray was negative for fractures. The chest x-ray negative for pneumonia or any rib fractures. The abdominal CT did show evidence of gastroenteritis which is most likely viral and should improve over the next few days. I recommend a diet with plenty of fluids and a bland diet until you start to feel better. Please take the nausea medication as needed. I sent the prescription to [facility] in [place]. I hope you feel better soon. Prescriptions: New ondansetron 4 mg tablet,disintegrating 4 mg PO Q8H PRN (Reason: nausea and vomiting) Qty: 20 0RF Referrals: Miscellaneous,Doctor, MD [Primary Care Provider] - Stand Alone Forms: Patient Portal/API <Diya Snyder DO - Last Filed: 06/02/22 08:31> Cosign ED Attending Cosbelenature Attestation: I was immediately available in the department for consultation.
[2022-06-01 19:12] LABS: Lactate (Lactic Acid) 1.4 mmol/L (0.7-2.1); Lipase 108 U/L (23-300)
[2022-06-01 19:25] LABS: Troponin I < 0.012 ng/mL (0.01-0.034)
[2022-06-01 19:28] LABS: Influenza A - CEPHEID Flu A NEGATIVE (NEGATIVE); Influenza B - CEPHEID Flu B NEGATIVE (NEGATIVE); Respiratory Syncytial Virus Negative (Negative)
[2022-06-01 19:33] LABS: COVID-19 CEPHEID 4-PLEX PCR Negative (Negative)
[2022-06-01 19:34] LABS: Appearance Urine UA SL CLOUDY; Bilirubin Urine UA NEGATIVE (NEGATIVE); Color Urine UA YELLOW; Glucose Urine UA NEGATIVE (Negative); Ketones Urine UA TRACE (NEGATIVE); Leukocyte Esterase Urine UA NEGATIVE (NEGATIVE); Nitrite Urine UA NEGATIVE (Negative); Occult Blood Urine UA NEGATIVE (Negative); Protein Urine UA NEGATIVE (Negative); Specific Gravity Urine UA 1.015 (1.000-1.035); UR Morphine/Opiate cutoff 300 Negative (Negative); Ur Creatinine Normal (Normal); Ur Specific Gravity Normal (Normal); Urine Amphetamines Negative (Negative); Urine Barbiturates Negative (Negative); Urine Benzodiazepines Negative (Negative); Urine Cocaine Negative (Negative); Urine MDMA Negative (Negative); Urine Methadone Negative (Negative); Urine Methamphetamines Negative (Negative); Urine Oxycodone Negative (Negative); Urine Phencyclidine Negative (Negative); Urine Tetrahydrocannabinol Negative (Negative); Urine Tricyclic Antidepressant Negative (Negative); Urine pH Normal (Normal); Urobilinogen Urine UA 0.2 E.U./dL (0.2)
[2022-06-01 19:43] LABS: Bacteria Urine None Seen; Culture Indicated Urine Cult Not Indicated; RBC Urine 0-1/HPF (0-5/HPF); Squamous Epithelial Cell Urine None Seen (0-5/HPF); WBC Urine 0-1/HPF (0-5/HPF)
[2022-06-01] MEDS: ONDANSETRON 4 MG ODT PREPACK 1 BOTTLE MISC (21:26)
--- NOTE | 2022-06-01 21:26 | PC.NURSE ---
Pt/ Pt's grandson returned to ED as pharmacy was closed. Requested pre pack of zofran. Discussed w/ Dr. Mckeon, ordered, dispensed per policy.
== END 2022-06-01 20:46 | disposition home or self-care (01) ==
PROVIDERS: Emergency Medicine; Emergency Provider Physician Assistant Medical
DX: K52.9 Noninfective gastroenteritis and colitis, unspecified (principal); Z20.822 Contact with and (suspected) exposure to COVID-19
CPT/HCPCS: 0241U; 36415; 70450; 71045; 72125; 73030; 74177; 80053; 80305; 81001; 82550; 82962; 83605; 83690; 83735; 84484; 85025; 85610; 85730; 87040; 93005; 96374; 99284; 99285; J2405; Q9967

== ENCOUNTER 2023-05-04 00:31 | Emergency (ER) | payer MEDICARE, MEDICAID, SELFPAY ==
[2023-05-04 00:34] VITALS: BP 148/84; PULSE 84; RESP 17; TEMP 37.1; O2SAT 98; BMI 25.7
--- NOTE | 2023-05-04 00:37 | DI.RAD.S_ITS ---
PROCEDURE: XR CHEST 1V INDICATIONS: SVT TECHNIQUE: One view of the chest was acquired. COMPARISON: [facility], CR, XR CHEST 1V, 06/01/2022, 14:54. FINDINGS: Surgical changes and devices: None. Lungs and pleura: Linear atelectasis versus scarring within the left lower lung field is stable compared to prior. Lungs are otherwise clear. No pleural effusions or pneumothorax. Mediastinum: Mediastinal contours appear normal. Heart size is mildly enlarged, stable. Bones and chest wall: No suspicious bony lesions. Overlying soft tissues appear unremarkable. IMPRESSION: No acute cardiopulmonary abnormality is seen. Dictated by: Raphael Morrell M.D. on 05/04/2023 at 0:59 Approved by: Raphael Morrell M.D. on 05/04/2023 at 0:59
[2023-05-04 00:48] VITALS: PULSE 80; O2SAT 94
--- NOTE | 2023-05-04 00:51 | ED.GENADULT ---
HPI - General Adult General Chief complaint: Shortness of Breath/Dyspnea Stated complaint: SVT-CP/SOB Time Seen by Provider: 05/04/23 00:37 Source: patient and EMS Mode of arrival: EMS History of Present Illness HPI narrative: Patient is an 82-year-old male. Was at his normal state of health sitting on the couch watching TV this evening when he states that he suddenly felt like his heart was racing. He contacted EMS. When EMS arrived he was found to be tachycardic with a heart rate in the 170s. Patient was given 6 mg of adenosine and afterwards heart rate improved to the low 100s. At the time of my evaluation the patient states that he is asymptomatic. He did have some slight chest discomfort at the time of the palpitations but now that is gone. He states he has had symptoms like this in the past but has never been evaluated as they have all been self-limiting. He denies any new medications. Related Data Previous Rx's Medication Instructions Recorded ondansetron 4 mg disintegrating 4 mg PO Q8H PRN nausea and 06/01/22 tablet vomiting #20 tabs Review of Systems Constitutional Constitutional: Reports system reviewed and no additional complaints, except as documented Cardiovascular Cardiovascular: Reports system reviewed and no additional complaints, except as documented Respiratory Respiratory: Reports system reviewed and no additional complaints, except as documented Integumentary/Breasts Skin/Breast: Reports system reviewed and no additional complaints, except as documented Hematologic/Lymphatic On Anticoagulants: No Patient History Social History Smoking Status: Never smoker Smoking Status: Never smoker alcohol intake frequency: holidays/special occasions only Alcohol type: beer Substance Use Type: does not use Exam Initial Vital Signs Initial Vital Signs: Vital Signs Temperature 98.7 F 05/04/23 00:34 Pulse Rate 84 05/04/23 00:34 Respiratory Rate 17 05/04/23 00:34 Blood Pressure 148/84 H 05/04/23 00:34 Pulse Oximetry 98 05/04/23 00:34 Oxygen Delivery Method Room Air 05/04/23 00:34 Const General: cooperative, comfortable and No ill appearing HENMT Head: normal to inspection and normocephalic Resp Effort & Inspection: normal respiratory effort Auscultation: clear to auscultation bilaterally Cardio Rate: regular rate Rhythm: regular rhythm Skin General: no rashes or lesions noted Neuro General: patient alert, patient awake, patient oriented x3 and moves all extremities Course Orders Ordered: ED Orders 05/04/23 00:35 Complete Blood Count AUTO DIFF Stat Comprehensive Metabolic Panel Stat Lipase Stat Magnesium Stat Troponin & CK Cardiac Panel Stat 05/04/23 00:37 XR chest 1V Stat EKG-12 Lead Stat Vital Signs Vital signs: Vital Signs - 8 hr 05/04/23 00:34 05/04/23 00:48 05/04/23 01:00 Temperature 98.7 F Pulse Rate 84 80 Respiratory Rate 17 Blood Pressure 148/84 H 109/67 Pulse Oximetry 98 94 Oxygen Delivery Method Room Air 05/04/23 01:00 Temperature Pulse Rate 78 Respiratory Rate 23 Blood Pressure Pulse Oximetry 95 Oxygen Delivery Method Medical Decision Making Lab Data Lab results reviewed: Yes I reviewed the patient's lab results. 05/04/23 00:35 05/04/23 00:35 Labs: Lab Results 05/04/23 Range/Units 00:35 WBC 9.6 (4.5-11.0) X10^3/uL RBC 4.25 L (4.5-5.9) X10^6/uL Hgb 13.6 (13.5-17.5) g/dL Hct 40.5 L (41-53) % MCV 95.2 (80-100) fL MCH 32.0 (26-34) PG MCHC 33.6 (30-36) % RDW 14.2 (11.6-14.8) % Plt Count 221 (150-400) X10^3/uL Neut % (Auto) 67.7 (50-75) % Lymph % (Auto) 19.1 L (25-40) % [place] % (Auto) 6.2 (3-14) % Eos % (Auto) 6.1 H (2-4) % Baso % (Auto) 0.9 (0-2) % Neut # (Auto) 6500 (9814-0077) /uL Lymph # (Auto) 1800 (1317-7096) /uL [place] # (Auto) 600 (0-900) /uL Eos # (Auto) 600 H (0-450) /uL Baso # (Auto) 100 (0-100) /uL Sodium 129 L (137-145) mmol/L Potassium 4.2 (3.4-5.1) mmol/L Chloride 96 L (98-107) mmol/L Carbon Dioxide 23 (22-32) mmol/L BUN 9 (9-20) mg/dL Creatinine 0.78 (0.66-1.25) mg/dL Estimated GFR > 60 (>60) mL/min BUN/Creatinine Ratio 11.5 (6-22) Glucose 189 H (80-110) mg/dL Calcium 9.1 (8.4-10.2) mg/dL Magnesium 1.8 (1.6-2.3) mg/dL Total Bilirubin 0.8 (0.2-1.3) mg/dL AST 34 (17-59) IU/L ALT 18 (<50) IU/L Alkaline Phosphatase 46 (38-126) U/L Total Creatine Kinase 92 (55-170) U/L Troponin I < 0.012 (0.01-0.034) ng/mL Total Protein 8.1 (6.3-8.2) g/dL Albumin 4.4 (3.5-5.0) g/dL Globulin 3.7 (1.7-4.1) g/dL Albumin/Globulin Ratio 1.2 (1.0-2.8) Lipase 159 (23-300) U/L Imaging Data Chest x-ray: Radiologist's Impression: PROCEDURE: XR CHEST 1V INDICATIONS: SVT TECHNIQUE: One view of the chest was acquired. COMPARISON: [facility], , XR CHEST 1V, 06/01/2022, 14:54. FINDINGS: Surgical changes and devices: None. Lungs and pleura: Linear atelectasis versus scarring within the left lower lung field is stable compared to prior. Lungs are otherwise clear. No pleural effusions or pneumothorax. Mediastinum: Mediastinal contours appear normal. Heart size is mildly enlarged, stable. Bones and chest wall: No suspicious bony lesions. Overlying soft tissues appear unremarkable. IMPRESSION: No acute cardiopulmonary abnormality is seen. ECG Data Attestation: I personally reviewed and interpreted this ECG as follows: Interpretation: Sinus rhythm Ventricular rate 81 Normal axis Normal QRS Normal QTC No ST T wave changes MDM Narrative Medical decision making narrative: Patient has been asymptomatic here in the emergency department. Has had a normal sinus rhythm and normal blood pressure. Is alert and oriented x3. Labs unremarkable. Chest x-ray is unremarkable. EKG is unremarkable. It appears that the adenosine that the paramedics administered fixed his SVT. I did not see the rhythm strips from the paramedics but they did state that it was a narrow complex tachycardia. Will discharge patient home with instructions to contact his primary provider to discuss the indications for Holter monitor. He was given return precautions. He expressed understanding and agreement. Discharge Plan Departure Patient Disposition: Home Clinical Impression: Paroxysmal supraventricular tachycardia Instructions: DI for Tachycardia Activity Restrictions/Additional Instructions: Your workup in the emergency department is very reassuring. Continue to take all of your medications as directed. Contact your primary care doctor for follow-up to discuss the indications for a Holter monitor. Return to the emergency department for new or worsening symptoms. Prescriptions: No Action ondansetron 4 mg tablet,disintegrating 4 mg PO Q8H PRN (Reason: nausea and vomiting) Qty: 20 0RF Referrals: Miscellaneous,Doctor, [Primary Care Provider] - Stand Alone Forms: Patient Portal/API
[2023-05-04 00:56] LABS: Add Manual Diff / Slide Review NO; Basophils Absolute Auto 100 /uL (0-100); Basophils Percent Auto 0.9 % (0-2); Eosinophils Absolute Auto 600 /uL (0-450); Eosinophils Percent Auto 6.1 % (2-4); Hematocrit 40.5 % (41-53); Hemoglobin 13.6 g/dL (13.5-17.5); Lymphocytes Absolute Auto 1800 /uL (1100-4500); Lymphocytes Percent Auto 19.1 % (25-40); Mean Corpuscular HGB Conc 33.6 % (30-36); Mean Corpuscular Volume 95.2 fL (80-100); Monocytes Absolute Auto 600 /uL (0-900); Monocytes Percent Auto 6.2 % (3-14); Neutrophils Absolute Auto 6500 /uL (1500-7000); Neutrophils Percent Auto 67.7 % (50-75); Platelet Count 221 X10^3/uL (150-400); Red Blood Cell Count 4.25 X10^6/uL (4.5-5.9); Red Cell Distribution Width 14.2 % (11.6-14.8); White Blood Cell Count 9.6 X10^3/uL (4.5-11.0)
[2023-05-04 01:00] VITALS: BP 109/67; PULSE 78; RESP 23; O2SAT 95
[2023-05-04 01:01] LABS: Alanine Aminotransferase 18 IU/L (<50); Albumin 4.4 g/dL (3.5-5.0); Albumin Globulin Ratio 1.2 (1.0-2.8); Alkaline Phosphatase 46 U/L (38-126); Aspartate Aminotransferase 34 IU/L (17-59); BUN Creatinine Ratio 11.5 (6-22); Bilirubin Total 0.8 mg/dL (0.2-1.3); Blood Urea Nitrogen 9 mg/dL (9-20); Calcium 9.1 mg/dL (8.4-10.2); Carbon Dioxide 23 mmol/L (22-32); Chloride 96 mmol/L (98-107); Creatine Kinase 92 U/L (55-170); Estimated Glomerular Filt Rate > 60 mL/min (>60); Globulin 3.7 g/dL (1.7-4.1); Glucose 189 mg/dL (80-110); Lipase 159 U/L (23-300); Magnesium 1.8 mg/dL (1.6-2.3); Potassium 4.2 mmol/L (3.4-5.1); Sodium 129 mmol/L (137-145); Total Protein 8.1 g/dL (6.3-8.2)
[2023-05-04 01:12] LABS: Troponin I < 0.012 ng/mL (0.01-0.034)
[2023-05-04 01:16] LABS: HEMOLYSIS 61 (0-50)
[2023-05-04 02:08] VITALS: BP 109/67; PULSE 76; RESP 22; O2SAT 96
== END 2023-05-04 02:10 | disposition home or self-care (01) ==
PROVIDERS: Emergency Provider Emergency Medicine
DX: I47.10 Supraventricular tachycardia, unspecified (principal)
CPT/HCPCS: 71045; 80053; 82550; 83690; 83735; 84484; 85025; 93005; 99283; 99284

== ENCOUNTER 2023-06-29 11:54 | Emergency (ER) | payer MEDICARE, MEDICAID, SELFPAY ==
[2023-06-29] VITALS (40 sets, daily range): BP systolic 82–165; BP diastolic 57–94; PULSE 81–150; RESP 9–23; TEMP 36.6; O2SAT 91–99; BMI 31.8
--- NOTE | 2023-06-29 12:20 | DI.RAD.S_ITS ---
PROCEDURE: XR CHEST 1V INDICATIONS: chest pain TECHNIQUE: One view of the chest was acquired. COMPARISON: [facility], CR, XR CHEST 1V, 05/04/2023, 0:50. FINDINGS: Surgical changes and devices: None. Lungs and pleura: Lungs are clear. No pleural effusions or pneumothorax. Mediastinum: Mediastinal contours appear normal. Heart size is normal. Bones and chest wall: No suspicious bony lesions. Overlying soft tissues appear unremarkable. IMPRESSION: No acute cardiopulmonary abnormality is seen. Dictated by: Ally Li MD, PhD on 06/29/2023 at 13:05 Approved by: Ally Li MD, PhD on 06/29/2023 at 13:05
--- NOTE | 2023-06-29 12:21 | ED_ITS ---
HPI - Chest Pain General Chief Complaint: Chest Pain Stated Complaint: dizzy tachy Time Seen by Provider: 06/29/23 12:20 Source: patient and EMS Mode of arrival: EMS History of Present Illness HPI narrative: 82-year-old gentleman with presumably a history of SVT, a prior stroke no known structural or atherosclerotic heart disease, hyperlipidemia diabetes with significant peripheral neuropathy currently living independently has been experiencing intermittent episodes of left-sided chest pain without dyspnea over the last couple of days. Apparently medics went out to evaluate him 48 hours ago for left-sided chest pain and together they decided not to transport. He had an episode on May 04 of SVT that was brought into the emergency department and had been cardioverted with adenosine. His daughter reports that he was simply sitting on the couch this morning and began having left-sided chest pain. Was transported to the emergency department and is found to be in a significant tachycardia in the 150 range possible SVT with a possibility of a two-to-one rapid atrial flutter is also entertained. He is relatively hemodynamically unstable with blood pressures in the systolic range of 80. He has not actively complaining of chest pain he has not pale, diaphoretic he is able to speak in full sentences and isn't quite sure why he is here. His daughter notes that he has had an upper respiratory infection recently but seems to be doing well at this point. He has not complaining of recent headache, nausea, vomiting, lower extremity edema. Related Data Previous Rx's Medication Instructions Recorded ondansetron 4 mg disintegrating 4 mg PO Q8H PRN nausea and 06/01/22 tablet vomiting #20 tabs metoprolol tartrate 25 mg tablet 25 mg PO BID #60 tabs 06/29/23 Allergies Allergy/AdvReac Type Severity Reaction Status Date / Time No Known Drug Allergies Allergy Verified 06/29/23 13:11 Review of Systems Review of Systems Narrative: Pertinent positive and negative findings as per HPI Patient History Social History Smoking Status: Never smoker Smoking Status: Never smoker alcohol intake frequency: holidays/special occasions only Alcohol type: beer Substance Use Type: does not use Exam Initial Vital Signs Initial Vital Signs: Vital Signs Pulse Rate 150 H 06/29/23 12:03 Respiratory Rate 19 06/29/23 12:03 Pulse Oximetry 97 06/29/23 12:03 General: Older appearing gentleman in no significant distress HEENT: Moist mucous membranes, normal sclera with reactive pupils, Neck: No JVD, supple Respiratory: Lungs are clear to auscultation, no wheezing no rales no rhonchi. Full and symmetrical air movement Cardiac: Tachy and irregular Abdomen: Soft, nontender, good bowel tones, no flank pain Skin: Warm and dry, no rashes Neurologic: Grossly neurologically intact with no obvious asymmetries or abnormalities Extremities: No trauma, well perfused Psych: Cooperative, appropriate insight and affect Course Orders Ordered: Discontinued Medications Adenosine (Adenosine 6 Mg/2 Ml Vial) 6 mg IV NOW ONE Stop: 06/29/23 12:23 Last Admin: 06/29/23 12:30 Dose: 6 mg Documented By: DK Adenosine (Adenosine 6 Mg/2 Ml Vial) 12 mg IV NOW ONE Stop: 06/29/23 12:24 Last Admin: 06/29/23 15:16 Dose: Not Given Documented By: KD Propofol (Propofol 200 Mg/20 Ml Vial) 200 mg IV NOW ONE Stop: 06/29/23 12:24 Last Admin: 06/29/23 15:16 Dose: Not Given Documented By: KD Vital Signs Vital signs: Vital Signs - 8 hr 06/29/23 12:03 06/29/23 12:13 06/29/23 12:13 Temperature Pulse Rate 150 H 149 H Respiratory Rate 19 15 Blood Pressure 107/57 L Pulse Oximetry 97 97 Oxygen Delivery Method 06/29/23 12:15 06/29/23 12:15 06/29/23 12:15 Temperature 97.9 F Pulse Rate 149 H 148 H Respiratory Rate 21 Blood Pressure 103/77 109/64 Pulse Oximetry 99 93 Oxygen Delivery Method Room Air 06/29/23 12:20 06/29/23 12:20 06/29/23 12:30 Temperature Pulse Rate 150 H 150 H Respiratory Rate 19 19 Blood Pressure 82/65 L Pulse Oximetry 96 99 Oxygen Delivery Method 06/29/23 12:30 06/29/23 12:32 06/29/23 12:32 Temperature Pulse Rate 86 Respiratory Rate 19 Blood Pressure 126/94 H 163/74 H Pulse Oximetry 97 Oxygen Delivery Method 06/29/23 12:35 06/29/23 12:35 06/29/23 12:37 Temperature Pulse Rate 84 82 Respiratory Rate 20 Blood Pressure 114/66 Pulse Oximetry 96 93 Oxygen Delivery Method 06/29/23 12:37 06/29/23 12:39 06/29/23 12:39 Temperature Pulse Rate 82 Respiratory Rate 16 Blood Pressure 151/67 H 128/69 Pulse Oximetry 95 Oxygen Delivery Method 06/29/23 12:40 06/29/23 12:40 06/29/23 12:42 Temperature Pulse Rate 82 83 Respiratory Rate 23 18 Blood Pressure 122/69 Pulse Oximetry 94 94 Oxygen Delivery Method 06/29/23 12:42 06/29/23 12:44 06/29/23 12:44 Temperature Pulse Rate 81 Respiratory Rate 14 Blood Pressure 123/73 122/75 Pulse Oximetry 94 Oxygen Delivery Method 06/29/23 12:46 06/29/23 12:46 06/29/23 12:48 Temperature Pulse Rate 83 83 Respiratory Rate 16 15 Blood Pressure 125/73 Pulse Oximetry 94 95 Oxygen Delivery Method 06/29/23 12:48 06/29/23 12:50 06/29/23 12:50 Temperature Pulse Rate 83 Respiratory Rate 15 Blood Pressure 138/66 126/63 Pulse Oximetry 92 Oxygen Delivery Method 06/29/23 12:52 06/29/23 12:52 06/29/23 12:54 Temperature Pulse Rate 83 84 Respiratory Rate 21 15 Blood Pressure 127/66 Pulse Oximetry 94 95 Oxygen Delivery Method 06/29/23 12:54 06/29/23 12:56 06/29/23 12:56 Temperature Pulse Rate 85 Respiratory Rate Blood Pressure 126/76 129/69 Pulse Oximetry 93 Oxygen Delivery Method 06/29/23 12:58 06/29/23 12:58 06/29/23 13:00 Temperature Pulse Rate 84 83 Respiratory Rate 21 12 Blood Pressure 130/74 Pulse Oximetry 95 95 Oxygen Delivery Method MDM - Chest Pain Lab Data 06/29/23 11:56 06/29/23 11:56 Labs: Lab Results 06/29/23 06/29/23 06/29/23 Range/Units 11:56 12:38 14:00 WBC 8.3 (4.5-11.0) X10^3/uL RBC 4.41 L (4.5-5.9) X10^6/uL Hgb 14.0 (13.5-17.5) g/dL Hct 42.4 (41-53) % MCV 96.2 (80-100) fL MCH 31.7 (26-34) PG MCHC 33.0 (30-36) % RDW 14.3 (11.6-14.8) % Plt Count 208 (150-400) X10^3/uL Neut % (Auto) 51.0 (50-75) % Lymph % (Auto) 30.9 (25-40) % Angelina % (Auto) 11.6 (3-14) % Eos % (Auto) 5.7 H (2-4) % Baso % (Auto) 0.8 (0-2) % Neut # (Auto) 4200 (9112-6008) /uL Lymph # (Auto) 2600 (0185-1037) /uL Angelina # (Auto) 1000 H (0-900) /uL Eos # (Auto) 500 H (0-450) /uL Baso # (Auto) 100 (0-100) /uL PT 11.4 (9.4-12.5) SECONDS INR 1.0 (0.9-1.3) APTT 35 (25.1-36.5) SECONDS Sodium 133 L (137-145) mmol/L Potassium 4.3 (3.4-5.1) mmol/L Chloride 99 (98-107) mmol/L Carbon Dioxide 26 (22-32) mmol/L BUN 5 L (9-20) mg/dL Creatinine 0.66 (0.66-1.25) mg/dL Estimated GFR > 60 (>60) mL/min BUN/Creatinine Ratio 7.6 (6-22) Glucose 157 H (80-110) mg/dL Calcium 9.7 (8.4-10.2) mg/dL Magnesium 2.0 (1.6-2.3) mg/dL Total Bilirubin 1.0 (0.2-1.3) mg/dL AST 36 (17-59) IU/L ALT 16 (<50) IU/L Alkaline Phosphatase 49 (38-126) U/L Total Creatine Kinase 86 (55-170) U/L Troponin I < 0.012 < 0.012 (0.01-0.034) ng/mL Total Protein 7.9 (6.3-8.2) g/dL Albumin 4.9 (3.5-5.0) g/dL Globulin 3.0 (1.7-4.1) g/dL Albumin/Globulin Ratio 1.6 (1.0-2.8) Lipase 91 (23-300) U/L MDM Narrative Medical decision making narrative: CC: Chest pain, rapid heart rate, hypotension Complicating co-morbidities: History of SVT in the last number of months, no prior history of such. Previous stroke, atherosclerotic heart disease, hypertension, hyperlipidemia Data collected from: patient, daughter Medical records reviewed: Notes from ER visit on May 04 with similar complaints are reviewed Differential considered: Symptomatic SVT, symptomatic atrial flutter with 2-1 block, acute coronary syndrome, electrolyte abnormalities Exam documented above, pertinent findings include: Patient is slightly pale but alert and appropriate maintaining airway. Heart rate is significantly tachycardic and he is hypotensive. Lab Test results independently reviewed as above. Pertinent findings: CBC is unremarkable Chemistries show moderately elevated glucose at 1:57 a.m. with remainder of labs unremarkable Troponin and repeat troponin are both unremarkable Independently reviewed EKG: SVT in the 160 range on initial EKG Post cardioversion EKG shows sinus rhythm with an occasional PAC. Leftward axis. No acute ischemic changes Imaging studies independently reviewed: Chest x-ray is unremarkable Treatments: Patient was given 6 mg of adenosine to see if the rhythm would convert or flow enough to confirm underlying flutter. He did convert and shortly thereafter his blood pressure improved significantly. Procedure: Patient is hemodynamically unstable on arrival, EKG shows rapid narrow rhythm most likely SVT possibility of two-to-one atrial flutter is entertained. He is given 6 mg of IV adenosine with the brief pause and then conversion to sinus rhythm. Blood pressure improves nicely as he returns to sinus rhythm. Discussion: 82-year-old gentleman presents with chest pain, SVT and hypotension. He is converted with a single dose of adenosine to sinus rhythm feeling significantly improved. Workup does not suggest electrolyte abnormalities, renal failure, congestive heart failure, acute coronary syndrome. He will be started on metoprolol 25 mg b.i.d. to see if we can prevent recurrent episodes of SVT. I am concerned this is his 2nd episode in about 6 weeks both associated with chest pain and he is hemodynamically unstable on arrival in the ER. I believe he needs an outpatient cardiac evaluation and may benefit from stress testing if not outpatient catheterization. At this point he is not requiring hospital admission and would certainly prefer to be discharged home. He does have appointment coming up with his primary care physician. He is safe for discharge Discharge Plan Departure Patient Disposition: Home Clinical Impression: Sustained SVT Chest pain Qualifiers: Chest pain type: unspecified Qualified Code(s): R07.9 - Chest pain, unspecified Instructions: Paroxysmal Supraventricular Tachycardia Activity Restrictions/Additional Instructions: Thank you for coming in today This is your 2nd visit now with supraventricular tachycardia. This is slightly unusual. I am going to start you on metoprolol 25 mg morning and night. I would encourage you to check your blood pressure once a day as well as your heart rate and keep track of these numbers. You do need to follow up with your primary care physician to review the new medications and the numbers. Each time that you have come in there is no evidence of acute heart attack. I am concerned that there may be some coronary arteries that are becoming more blocked as the underlying reason for the SVT. Please discuss a Cardiology outpatient referral with your primary care physician If you find that you are getting worse or develop any new symptoms, please feel free to return to the emergency department for further evaluation. Prescriptions: New metoprolol tartrate 25 mg tablet 25 mg PO BID Qty: 60 1RF No Action ondansetron 4 mg tablet,disintegrating 4 mg PO Q8H PRN (Reason: nausea and vomiting) Qty: 20 0RF Referrals: Miscellaneous,Doctor, [Primary Care Provider] - Stand Alone Forms: Patient Portal/API
[2023-06-29] MEDS: ADENOSINE 6 MG/2 ML VIAL IV (12:30)
[2023-06-29 12:33] LABS: Add Manual Diff / Slide Review NO; Basophils Absolute Auto 100 /uL (0-100); Basophils Percent Auto 0.8 % (0-2); Eosinophils Absolute Auto 500 /uL (0-450); Eosinophils Percent Auto 5.7 % (2-4); Hematocrit 42.4 % (41-53); Lymphocytes Absolute Auto 2600 /uL (1100-4500); Lymphocytes Percent Auto 30.9 % (25-40); Mean Corpuscular Hemoglobin 31.7 PG (26-34); Mean Corpuscular Volume 96.2 fL (80-100); Monocytes Absolute Auto 1000 /uL (0-900); Monocytes Percent Auto 11.6 % (3-14); Neutrophils Absolute Auto 4200 /uL (1500-7000); Platelet Count 208 X10^3/uL (150-400); Red Blood Cell Count 4.41 X10^6/uL (4.5-5.9); Red Cell Distribution Width 14.3 % (11.6-14.8); White Blood Cell Count 8.3 X10^3/uL (4.5-11.0)
[2023-06-29 12:36] LABS: Alanine Aminotransferase 16 IU/L (<50); Albumin 4.9 g/dL (3.5-5.0); Albumin Globulin Ratio 1.6 (1.0-2.8); Alkaline Phosphatase 49 U/L (38-126); Aspartate Aminotransferase 36 IU/L (17-59); BUN Creatinine Ratio 7.6 (6-22); Blood Urea Nitrogen 5 mg/dL (9-20); Calcium 9.7 mg/dL (8.4-10.2); Carbon Dioxide 26 mmol/L (22-32); Chloride 99 mmol/L (98-107); Creatine Kinase 86 U/L (55-170); Estimated Glomerular Filt Rate > 60 mL/min (>60); Glucose 157 mg/dL (80-110); HEMOLYSIS 43 (0-50); Lipase 91 U/L (23-300); Potassium 4.3 mmol/L (3.4-5.1); Sodium 133 mmol/L (137-145); Total Protein 7.9 g/dL (6.3-8.2)
[2023-06-29 12:47] LABS: Troponin I < 0.012 ng/mL (0.01-0.034)
[2023-06-29 12:54] LABS: Prothrombin Time 11.4 SECONDS (9.4-12.5)
[2023-06-29 12:57] LABS: PTT Partial Thromboplastin Tim 35 SECONDS (25.1-36.5)
[2023-06-29 14:36] LABS: Troponin I < 0.012 ng/mL (0.01-0.034)
== END 2023-06-29 15:37 | disposition home or self-care (01) ==
PROVIDERS: Emergency Provider Emergency Medicine
DX: R07.9 Chest pain, unspecified (principal); I47.10 Supraventricular tachycardia, unspecified; I95.9 Hypotension, unspecified
CPT/HCPCS: 71045; 80053; 82550; 83690; 83735; 84484; 85025; 85610; 85730; 93005; 96374; 99284; J0153

== ENCOUNTER 2023-07-15 10:21 | Emergency (ER) | payer MEDICARE, MEDICAID, SELFPAY ==
[2023-07-15 10:27] VITALS: PULSE 72
[2023-07-15 10:29] VITALS: BP 153/83; PULSE 72; RESP 14; RESP 15; TEMP 36; O2SAT 96; BMI 26.9
[2023-07-15 10:30] VITALS: BP 158/85; PULSE 72; RESP 19; O2SAT 96
--- NOTE | 2023-07-15 10:31 | ED.ARRPALP ---
HPI - Arrhythmia/Palpitations General Chief Complaint: Arrhythmia/Palpitations Stated Complaint: Tachy, hx SVT Time Seen by Provider: 07/15/23 10:30 Source: patient, EMS, RN notes reviewed and old records reviewed Mode of arrival: EMS Limitations: no limitations History of Present Illness HPI narrative: 82-year-old male was presumable history of SVT, prior stroke, dyslipidemia, diabetes with peripheral neuropathy who was seen in June and had an episode of SVT was cardioverted with adenosine. With EMS today patient had what appeared to be SVT was tachycardic and hypotensive and was given 6 mg of did have a seen by EMS and appears to be cardioverted to a sinus rhythm on telemetry. Patient states that prior to this he had abrupt onset of left-sided chest pressure, shortness of breath, he denies any recent fevers, no lightheadedness or passing out, denies any diaphoresis. No nausea or vomiting, no diarrhea or constipation, no new swelling in extremities. He was reportedly started on metoprolol 25 mg b.i.d. but had heart rates into the 40s and was decreased to 12.5 mg b.i.d. but unclear exactly what day. Patient states he does take medications for his heart he does not know the names. He does not believe he is on any anticoagulation. Patient denies any surgeries or interventions to his heart is. No known drug allergies. No tobacco, occasional alcohol, no recreational drugs. EMS notes he has a family member who assists him with his medications. They are EN route. Related Data Previous Rx's Medication Instructions Recorded ondansetron 4 mg disintegrating 4 mg PO Q8H PRN nausea and 06/01/22 tablet vomiting #20 tabs metoprolol tartrate 25 mg tablet 25 mg PO BID #60 tabs 06/29/23 Allergies Allergy/AdvReac Type Severity Reaction Status Date / Time No Known Drug Allergies Allergy Verified 07/15/23 10:29 Review of Systems Review of Systems ROS Unobtainable: All systems reviewed & are unremarkable except as noted in HPI and below Patient History Social History Smoking Status: Never smoker Smoking Status: Never smoker alcohol intake frequency: holidays/special occasions only Alcohol type: beer Substance Use Type: does not use Exam Narrative Exam Narrative: GENERAL: Alert and oriented x three, elderly appearing male in mild distress. HEENT: Head normocephalic, atraumatic, EOMI, pupils reactive, face symmetric, moist mucous membranes NECK: Supple, full range of motion CARDIOVASCULAR: Regular rate and rhythm without murmurs, rubs or gallops. No JVD. No edema bilateral lower extremities. RESPIRATORY: Breath sounds equal bilaterally, no wheezes rales or rhonchi. ABDOMEN: Soft, nontender. Normoactive bowel sounds all 4 quadrants. No guarding or rebound, rigidity, no mass : No CVA tenderness EXTREMITIES: Normal range of motion, no clubbing or edema. Neurovascularly intact NEUROLOGICAL: Cranial nerves II through XII grossly intact. Moving all extremities SKIN: Warm, dry, no petechiae, no rashes or lesions. Initial Vital Signs Initial Vital Signs: Vital Signs Pulse Rate 72 07/15/23 10:27 Course Orders Ordered: ED Orders 07/15/23 10:25 Complete Blood Count AUTO DIFF Stat Comprehensive Metabolic Panel Stat Lipase Stat MAG [Magnesium] Stat NT-proBNP (BNP-Adult 18+) Stat PTT Partial Thromboplastin Marino Stat Prothrombin Time INR Stat Troponin & CK Cardiac Panel Stat 07/15/23 10:30 XR chest 1V Stat EKG-12 Lead Stat Sodium Chloride (Normal Saline 0.9%) 1,000 mls @ 150 mls/hr IV CONT MAYNOR Last Admin: 07/15/23 11:35 Dose: Not Given Documented By: YAMILA Vital Signs Vital signs: Vital Signs - 8 hr 07/15/23 10:27 07/15/23 10:29 07/15/23 10:29 Temperature 96.8 F L Pulse Rate 72 72 Respiratory Rate 15 14 Blood Pressure 153/83 H 153/83 H Pulse Oximetry 96 Oxygen Delivery Method Room Air Room Air 07/15/23 10:29 07/15/23 10:30 07/15/23 10:30 Temperature Pulse Rate 72 72 Respiratory Rate 19 Blood Pressure 158/85 H Pulse Oximetry 96 96 Oxygen Delivery Method 07/15/23 11:00 07/15/23 11:00 07/15/23 11:30 Temperature Pulse Rate 72 Respiratory Rate 12 Blood Pressure 158/78 H 132/67 Pulse Oximetry 95 Oxygen Delivery Method 07/15/23 11:30 Temperature Pulse Rate 69 Respiratory Rate 12 Blood Pressure Pulse Oximetry 93 Oxygen Delivery Method MDM - Arrhythmia/Palpitations Lab Data 07/15/23 10:25 07/15/23 10:25 Labs: Lab Results 07/15/23 Range/Units 10:25 WBC 8.3 (4.5-11.0) X10^3/uL RBC 4.36 L (4.5-5.9) X10^6/uL Hgb 14.0 (13.5-17.5) g/dL Hct 41.0 (41-53) % MCV 94.0 (80-100) fL MCH 32.1 (26-34) PG MCHC 34.1 (30-36) % RDW 13.8 (11.6-14.8) % Plt Count 185 (150-400) X10^3/uL Neut % (Auto) 56.2 (50-75) % Lymph % (Auto) 30.6 (25-40) % Lanier % (Auto) 9.4 (3-14) % Eos % (Auto) 3.3 (2-4) % Baso % (Auto) 0.5 (0-2) % Neut # (Auto) 4700 (3727-8359) /uL Lymph # (Auto) 2500 (3275-2609) /uL Lanier # (Auto) 800 (0-900) /uL Eos # (Auto) 300 (0-450) /uL Baso # (Auto) 0 (0-100) /uL PT 11.6 (9.4-12.5) SECONDS INR 1.0 (0.9-1.3) APTT 36 (25.1-36.5) SECONDS Sodium 131 L (137-145) mmol/L Potassium 3.8 (3.4-5.1) mmol/L Chloride 95 L (98-107) mmol/L Carbon Dioxide 27 (22-32) mmol/L BUN 8 L (9-20) mg/dL Creatinine 0.77 (0.66-1.25) mg/dL Estimated GFR > 60 (>60) mL/min BUN/Creatinine Ratio 10.4 (6-22) Glucose 159 H (80-110) mg/dL Calcium 9.7 (8.4-10.2) mg/dL Magnesium 1.9 (1.6-2.3) mg/dL Total Bilirubin 0.9 (0.2-1.3) mg/dL AST 24 (17-59) IU/L ALT 15 (<50) IU/L Alkaline Phosphatase 49 (38-126) U/L Total Creatine Kinase 81 (55-170) U/L Troponin I < 0.012 (0.01-0.034) ng/mL NT-Pro-B Natriuret Pep 82 (<450) pg/mL Total Protein 8.1 (6.3-8.2) g/dL Albumin 5.0 (3.5-5.0) g/dL Globulin 3.1 (1.7-4.1) g/dL Albumin/Globulin Ratio 1.6 (1.0-2.8) Lipase 128 (23-300) U/L Imaging Data Chest x-ray: Radiologist's Impresson: Close Chest X-Ray (Signed) Ally Li - 07/15/23 Chest X-Ray (Signed) Ally Li - 06/29/23 Telemetry Strips 06/29/23 Chest X-Ray (Signed) Raphael Morrell - 05/04/23 Abdomen/Pelvis CT (Signed) Peggy Novak - 06/01/[address] (Signed) Khai Cabrera - 06/01/22 Shoulder X-Ray (Signed) Mau Raza - 06/01/[address] (Signed) Cabrera,Khai - 06/01/22 Chest X-Ray (Signed) Mau Raza - 06/01/22 Launch?[place] [address] XRay Report Signed Patient: Mando Fields MR#: [id number] : 1940 Acct:[id number] Age/Sex: 82 / M Date of Service: 07/15/23 Loc: ED Accession Number: [id number] Procedure: XR chest 1V Ordering Provider: Diya Snyder D.O. PROCEDURE: XR CHEST 1V INDICATIONS: Arrhythmia TECHNIQUE: One view of the chest was acquired. COMPARISON: [facility] , XR CHEST 1V, 06/29/2023, 12:25. FINDINGS: Surgical changes and devices: Cardiac event recorder. Lungs and pleura: Bibasilar atelectasis. No pleural effusions or pneumothorax. Mediastinum: Mediastinal contours appear normal. Heart is enlarged. Bones and chest wall: No suspicious bony lesions. Overlying soft tissues appear unremarkable. IMPRESSION: No acute cardiopulmonary abnormality is seen. Dictated by: Ally Li MD, PhD on 07/15/2023 at 11:06 Approved by: Ally Li MD, PhD on 07/15/2023 at 11:07 ECG Data Attestation: I personally reviewed and interpreted this ECG as follows: Prior ECG tracings: available for review Interpretation: Sinus rhythm rate of 75 WA 192 QRS 82 QTC 433. Nonspecific change. Patient has prior from 06/29/2023 appears fairly similar in ST segments. MDM Narrative Medical decision making narrative: Patient appears to have cardioverted in the field with 6 mg of adenosine telemetry does look like likely SVT. EKG was repeated here shows sinus rhythm at this time. Labs show white count 8.3 hemoglobin of 14 platelets of 185. INR is 1, sodium is 131 potassium 3.8 chloride 95 CO2 is 27 with a BUN 8 creatinine 0.77 glucose of 159 Mag is 1.9 with calcium 9.7 negative LFTs. Troponin is negative, BNP 82. Chest x-ray is negative for acute change. Patient's metoprolol was decreased to 12.5 mg b.i.d. per EMS from 25 mg secondary to bradycardia. Patient continues to be in sinus rhythm throughout his stay. He is set up to follow up with Cardiology would not increase his metoprolol again as he did not tolerate that well before. Discussed with patient he can take an extra dose of his metoprolol 12.5 mg but would not increase his total overall amount. Discharge Plan Departure Patient Disposition: Home Clinical Impression: Paroxysmal supraventricular tachycardia Activity Restrictions/Additional Instructions: Follow up with your cardiology team. You appear to have cardioverted after dose of adenosine today. Please return for new or worsening symptoms, new chest pain or shortness of breath, persistently fast heart rate, lightheadedness or passing out, new swelling in her extremities or other new or concerning changes. Prescriptions: No Action ondansetron 4 mg tablet,disintegrating 4 mg PO Q8H PRN (Reason: nausea and vomiting) Qty: 20 0RF metoprolol tartrate 25 mg tablet 25 mg PO BID Qty: 60 1RF Referrals: Miscellaneous,Doctor, [Primary Care Provider] - Stand Alone Forms: Patient Portal/API
[2023-07-15 10:42] LABS: Add Manual Diff / Slide Review NO; Basophils Absolute Auto 0 /uL (0-100); Basophils Percent Auto 0.5 % (0-2); Eosinophils Absolute Auto 300 /uL (0-450); Eosinophils Percent Auto 3.3 % (2-4); Lymphocytes Absolute Auto 2500 /uL (1100-4500); Lymphocytes Percent Auto 30.6 % (25-40); Mean Corpuscular HGB Conc 34.1 % (30-36); Mean Corpuscular Hemoglobin 32.1 PG (26-34); Monocytes Absolute Auto 800 /uL (0-900); Monocytes Percent Auto 9.4 % (3-14); Neutrophils Absolute Auto 4700 /uL (1500-7000); Neutrophils Percent Auto 56.2 % (50-75); Platelet Count 185 X10^3/uL (150-400); Red Blood Cell Count 4.36 X10^6/uL (4.5-5.9); Red Cell Distribution Width 13.8 % (11.6-14.8); White Blood Cell Count 8.3 X10^3/uL (4.5-11.0)
[2023-07-15 10:50] LABS: Prothrombin Time 11.6 SECONDS (9.4-12.5)
[2023-07-15 10:53] LABS: PTT Partial Thromboplastin Tim 36 SECONDS (25.1-36.5)
[2023-07-15 10:55] LABS: Magnesium 1.9 mg/dL (1.6-2.3)
[2023-07-15 10:56] LABS: Alanine Aminotransferase 15 IU/L (<50); Albumin Globulin Ratio 1.6 (1.0-2.8); Alkaline Phosphatase 49 U/L (38-126); Aspartate Aminotransferase 24 IU/L (17-59); BUN Creatinine Ratio 10.4 (6-22); Bilirubin Total 0.9 mg/dL (0.2-1.3); Blood Urea Nitrogen 8 mg/dL (9-20); Calcium 9.7 mg/dL (8.4-10.2); Carbon Dioxide 27 mmol/L (22-32); Chloride 95 mmol/L (98-107); Creatine Kinase 81 U/L (55-170); Estimated Glomerular Filt Rate > 60 mL/min (>60); Globulin 3.1 g/dL (1.7-4.1); Glucose 159 mg/dL (80-110); HEMOLYSIS < 15 (0-50); Lipase 128 U/L (23-300); Potassium 3.8 mmol/L (3.4-5.1); Sodium 131 mmol/L (137-145); Total Protein 8.1 g/dL (6.3-8.2)
[2023-07-15 11:00] VITALS: BP 158/78; PULSE 72; RESP 12; O2SAT 95
[2023-07-15 11:06] LABS: NT-proBNP (BNP-Adult 18+) 82 pg/mL (<450); Troponin I < 0.012 ng/mL (0.01-0.034)
[2023-07-15 11:30] VITALS: BP 132/67; PULSE 69; RESP 12; O2SAT 93
== END 2023-07-15 12:40 | disposition home or self-care (01) ==
PROVIDERS: Emergency Provider Emergency Medicine
DX: I47.10 Supraventricular tachycardia, unspecified (principal)
CPT/HCPCS: 36415; 71045; 80053; 82550; 83690; 83735; 83880; 84484; 85025; 85610; 85730; 93005; 93010; 99284

== ENCOUNTER 2024-07-15 11:41 | Observation (INO) | payer MEDICARE, MEDICAID, SELFPAY ==
[2024-07-15] VITALS (15 sets, daily range): BP systolic 104–165; BP diastolic 54–84; PULSE 73–92; RESP 14–27; TEMP 36.6–36.9; O2SAT 95–99; BMI 30.8; BMI 29.8
--- NOTE | 2024-07-15 11:47 | EKG_ITS ---
[address] [address] Test Date: 2024-07-15 Pat Name: Mando Fields Department: Room: Gender: Male Supervisor [employer]: DANIELLE : 1940 Requested By: Order Number: [id number] Reading MD: Shankar Reinoso MD Measurements Intervals Terral Rate: 92 P: 5 OR: 180 QRS: -9 QRSD: 80 T: -20 QT: 372 QTc: 460 Interpretive Statements Normal sinus rhythm Inferior infarct , age undetermined Cannot rule out Anterior infarct , age undetermined Electronically Signed On 07-16-2024 8:42:44 PDT by Shankar Reinoso MD
--- NOTE | 2024-07-15 11:53 | ED.ABDPAIN ---
HPI - Abdominal Pain General Chief Complaint: Weakness Stated Complaint: weakness, pain between shoulder blades Time Seen by Provider: 07/15/24 11:44 History of Present Illness HPI narrative: Patient is a 83-year-old male history of SVT prior stroke dyslipidemia diabetes peripheral neuropathy presenting today with generalized weakness. He reports not feeling well yesterday but could not really pinpoint anything. Last night he started having some pain between his shoulder blades. He reports he sometimes has pain there. He also says he fell a couple days ago flat on his back but did not hit his head or no loss of consciousness. This morning he just feels increasingly weak he was found to be hypotensive in the field now blood pressure is 113/80. He has no significant chest pain he has a little shortness of breath. No abdominal pain nausea vomiting or other symptoms. Related Data Previous Rx's Medication Instructions Recorded ondansetron 4 mg disintegrating 4 mg PO Q8H PRN nausea and 06/01/22 tablet vomiting #20 tabs metoprolol tartrate 25 mg tablet 25 mg PO BID #60 tabs 06/29/23 Allergies Allergy/AdvReac Type Severity Reaction Status Date / Time No Known Drug Allergies Allergy Verified 07/15/23 10:29 Patient History alcohol intake frequency: holidays/special occasions only Alcohol type: beer Exam Initial Vital Signs Initial Vital Signs: Vital Signs Blood Pressure 113/54 L 07/15/24 11:46 GENERAL: Alert week disheveled 83-year-old male and in no acute distress. HEENT: Head atraumatic,EOMI, pupils reactive, face symmetric, moist mucous membranes CARDIOVASCULAR: Regular rate and rhythm without murmurs, rubs or gallops. RESPIRATORY: Breath sounds equal bilaterally, no wheezes rales or rhonchi. ABDOMEN: Soft, nontender. Normoactive bowel sounds all 4 quadrants. No guarding or rebound. EXTREMITIES: Normal range of motion, no clubbing +2 pitting edema bilaterally Neurovascularly intact NEUROLOGICAL: Alert and oriented x4.Normal gait and speech. Cranial nerves II through XII grossly intact. SKIN: Warm, dry, no laceration, no petechiae, no rashes or lesions. Course Orders Ordered: ED Orders 07/15/24 11:45 Complete Blood Count AUTO DIFF Stat Comprehensive Metabolic Panel Stat Lactate (Lactic Acid) Stat NT-proBNP (BNP-Adult 18+) Stat PTT Partial Thromboplastin [place] Stat Procalcitonin Stat Prothrombin Time INR Stat Troponin & CK Cardiac Panel Stat 07/15/24 11:53 XR chest 1V Stat 07/15/24 11:54 EKG-12 Lead Stat 07/15/24 12:15 Covid-19 + FLU A/B + RSV - PCR Stat Respiratory Panel (Film Array) Stat 07/15/24 12:46 Blood Culture Stat 07/15/24 13:38 CT angio chest abdomen pelvis Stat 07/15/24 13:43 Trop I [Troponin I] Stat 07/15/24 14:13 Urinalysis and Microscopic Stat Acetaminophen (Acetaminophen 325 Mg Tablet) 650 mg PO Q6H PRN PRN Reason: Fever/Mild Pain (1-3) Enoxaparin Sodium (Enoxaparin 40 Mg/0.4 Ml Syringe) 40 mg SUBCUT DAILY [facility] Gabapentin (Gabapentin 600 Mg Tablet) 1,200 mg PO TID [facility] Dextrose/Sodium Chloride (Dextrose 5%-0.45% Ns) 1,000 mls @ 100 mls/hr IV CONT [facility] Ceftriaxone Sodium 1,000 mg/ (Sodium Chloride) 100 mls @ 200 mls/hr IV Q24H [facility] Azithromycin 500 mg/ Dextrose 250 mls @ 250 mls/hr IV Q24H [facility] Insulin Human Lispro (Insulin Lispro 100 Unit/Ml 3ml Vial) 0 unit SUBCUT ACHS [facility]; Protocol Metformin HCl (Metformin Hcl 500 Mg Tablet) 500 mg PO 0800 [facility] Metoprolol Tartrate (Metoprolol Ir 25 Mg Tablet) 12.5 mg PO BID [facility] Naloxone HCl (Naloxone 0.4 Mg/Ml Vial) 0.2 mg IV Q2MIN PRN PRN Reason: Opiate Reversal Ondansetron HCl (Ondansetron 4 Mg/2 Ml Inj) 4 mg IV Q8HR PRN PRN Reason: Nausea And Vomiting Discontinued Medications Piperacillin Sod/Tazobactam (Sod 4.5 gm/ Sodium Chloride) 100 mls @ 200 mls/hr IV NOW ONE Stop: 07/15/24 12:20 Last Infusion: 07/15/24 13:33 Dose: Infused Documented By: Admin: 07/15/24 13:07 Dose: 200 mls/hr Documented By: MILO Sodium Chloride (Normal Saline 0.9%) 2,466 mls @ 822 mls/hr 30 ml/kg infuse over 3 hr (6646 ml) IV NOW ONE Stop: 07/15/24 15:27 Last Admin: 07/15/24 12:50 Dose: 822 mls/hr Documented By: MILO Vital Signs Vital signs: Vital Signs - 8 hr 07/15/24 11:46 07/15/24 11:47 07/15/24 11:54 Temperature 98.0 F Pulse Rate 92 H 92 H Respiratory Rate 27 H 18 Blood Pressure 113/54 L 113/54 L Pulse Oximetry 99 Oxygen Delivery Method Room Air 07/15/24 12:00 07/15/24 12:00 07/15/24 12:30 Temperature Pulse Rate 91 H 84 Respiratory Rate 24 24 Blood Pressure 104/56 L Pulse Oximetry 95 Oxygen Delivery Method 07/15/24 12:31 07/15/24 12:31 07/15/24 13:00 Temperature Pulse Rate 85 Respiratory Rate 25 H Blood Pressure 125/58 L 140/62 Pulse Oximetry Oxygen Delivery Method 07/15/24 13:00 07/15/24 13:30 07/15/24 13:30 Temperature Pulse Rate 76 79 Respiratory Rate 22 17 Blood Pressure 146/67 H Pulse Oximetry 95 96 Oxygen Delivery Method 07/15/24 14:00 07/15/24 14:00 07/15/24 14:30 Temperature Pulse Rate 80 85 Respiratory Rate 18 14 Blood Pressure 165/77 H Pulse Oximetry 96 96 Oxygen Delivery Method 07/15/24 15:00 Temperature Pulse Rate 84 Respiratory Rate 19 Blood Pressure Pulse Oximetry 95 Oxygen Delivery Method MDM - Abdominal Pain Lab Data 07/15/24 11:45 07/15/24 11:45 Labs: Lab Results 07/15/24 07/15/24 07/15/24 Range/Units 11:45 12:15 12:15 WBC 19.4 H (4.5-11.0) X10^3/uL RBC 4.37 L (4.5-5.9) X10^6/uL Hgb 14.1 (13.5-17.5) g/dL Hct 42.4 (41-53) % MCV 96.9 (80-100) fL MCH 32.3 (26-34) PG MCHC 33.3 (30-36) % RDW 13.1 (11.6-14.8) % Plt Count 319 (150-400) X10^3/uL Neut % (Auto) 82.2 H (50-75) % Lymph % (Auto) 8.7 L (25-40) % Ness % (Auto) 7.1 (3-14) % Eos % (Auto) 1.8 L (2-4) % Baso % (Auto) 0.2 (0-2) % Neut # (Auto) 68955 H (3186-6062) /uL Lymph # (Auto) 1700 (9997-0332) /uL Ness # (Auto) 1400 H (0-900) /uL Eos # (Auto) 300 (0-450) /uL Baso # (Auto) 0 (0-100) /uL PT 11.5 (9.4-12.5) SECONDS INR 1.0 (0.9-1.3) APTT 36 (25.1-36.5) SECONDS Sodium 130 L (137-145) mmol/L Potassium 3.5 (3.4-5.1) mmol/L Chloride 95 L (98-107) mmol/L Carbon Dioxide 16 L (22-32) mmol/L BUN 10 (9-20) mg/dL Creatinine 0.90 (0.66-1.25) mg/dL Estimated GFR > 60 (>60) mL/min BUN/Creatinine Ratio 11.1 (6-22) Glucose 165 H (70-99) mg/dL Lactate 4.8 H* (0.7-2.1) mmol/L Calcium 9.8 (8.4-10.2) mg/dL Total Bilirubin 0.9 (0.2-1.3) mg/dL AST 37 (17-59) IU/L ALT 25 (<50) IU/L Alkaline Phosphatase 65 (38-126) U/L Total Creatine Kinase 96 (55-170) U/L Troponin I < 0.012 (0.01-0.034) ng/mL NT-Pro-B Natriuret Pep 627 H (<450) pg/mL Total Protein 8.4 H (6.3-8.2) g/dL Albumin 5.0 (3.5-5.0) g/dL Globulin 3.4 (1.7-4.1) g/dL Albumin/Globulin Ratio 1.5 (1.0-2.8) Vitamin B12 575 (239-931) pg/mL Procalcitonin 0.207 (<0.5) ng/mL TSH 3.11 (0.47-4.68) uIU/mL Urine Color Urine Appearance Urine pH (4.5-8.0) Ur Specific [place] (1.000-1.035) Urine Protein (Negative) Urine Glucose (UA) (Negative) g/dL Urine Ketones (NEGATIVE) Urine Occult Blood (Negative) Urine Nitrate (Negative) Urine Bilirubin (NEGATIVE) Urine Urobilinogen (0.2) E.U./dL Ur Leukocyte Esterase (NEGATIVE) Urine RBC (0-5/HPF) Urine WBC (0-5/HPF) Ur Squamous Epith Cells (0-5/HPF) Urine Bacteria (None) Ur Culture Indicated? Vol Urine Centrifuged Chlamy pneumoniae PCR Not detected (Not Detect) Adenovirus (PCR) Not detected (Not Detect) B. pertussis DNA (PCR) Not detected (Not Detect) B.parapertussis DNA PCR Not detected (Not Detecte) Coronavirus OC43 (PCR) Not detected (Not Detect) Coronavirus HKU1 (PCR) Not detected (Not Detect) Coronavirus 229E (PCR) Not detected (Not Detect) SARS-CoV-2 (PCR) Negative Not detected (Negative) Coronavirus NL63 (PCR) Not detected (Not Detect) Human Metapneumovir PCR Not detected (Not Detect) Influenza A (RT-PCR) Flu a negative (NEGATIVE) Influenza Type A (PCR) Not detected (Not Detect) Influenza B (RT-PCR) Flu b negative (NEGATIVE) Influenza Type B (PCR) Not detected (Not Detect) M. pneumoniae (PCR) Not detected (Not Detect) Parainfluenza 1 (PCR) Not detected (Not Detect) Parainfluenza 2 (PCR) Not detected (Not Detect) Parainfluenza 3 (PCR) Not detected (Not Detect) Parainfluenza 4 (PCR) Not detected (Not Detect) RSV (PCR) Negative (Negative) Entero/Rhino (PCR) (Not Detect) 07/15/24 07/15/24 07/15/24 Range/Units 12:15 13:43 14:13 WBC (4.5-11.0) X10^3/uL RBC (4.5-5.9) X10^6/uL Hgb (13.5-17.5) g/dL Hct (41-53) % MCV (80-100) fL MCH (26-34) PG MCHC (30-36) % RDW (11.6-14.8) % Plt Count (150-400) X10^3/uL Neut % (Auto) (50-75) % Lymph % (Auto) (25-40) % Ness % (Auto) (3-14) % Eos % (Auto) (2-4) % Baso % (Auto) (0-2) % Neut # (Auto) (2423-5653) /uL Lymph # (Auto) (5862-3150) /uL Ness # (Auto) (0-900) /uL Eos # (Auto) (0-450) /uL Baso # (Auto) (0-100) /uL PT (9.4-12.5) SECONDS INR (0.9-1.3) APTT (25.1-36.5) SECONDS Sodium (137-145) mmol/L Potassium (3.4-5.1) mmol/L Chloride (98-107) mmol/L Carbon Dioxide (22-32) mmol/L BUN (9-20) mg/dL Creatinine (0.66-1.25) mg/dL Estimated GFR (>60) mL/min BUN/Creatinine Ratio (6-22) Glucose (70-99) mg/dL Lactate 2.0 (0.7-2.1) mmol/L Calcium (8.4-10.2) mg/dL Total Bilirubin (0.2-1.3) mg/dL AST (17-59) IU/L ALT (<50) IU/L Alkaline Phosphatase (38-126) U/L Total Creatine Kinase (55-170) U/L Troponin I < 0.012 (0.01-0.034) ng/mL NT-Pro-B Natriuret Pep (<450) pg/mL Total Protein (6.3-8.2) g/dL Albumin (3.5-5.0) g/dL Globulin (1.7-4.1) g/dL Albumin/Globulin Ratio (1.0-2.8) Vitamin B12 (239-931) pg/mL Procalcitonin (<0.5) ng/mL TSH (0.47-4.68) uIU/mL Urine Color Yellow Urine Appearance Clear Urine pH 5.5 (4.5-8.0) Ur Specific [place] 1.010 (1.000-1.035) Urine Protein Negative (Negative) Urine Glucose (UA) Negative (Negative) g/dL Urine Ketones Negative (NEGATIVE) Urine Occult Blood Negative (Negative) Urine Nitrate Negative (Negative) Urine Bilirubin Negative (NEGATIVE) Urine Urobilinogen 0.2 (0.2) E.U./dL Ur Leukocyte Esterase Negative (NEGATIVE) Urine RBC None seen (0-5/HPF) Urine WBC None seen (0-5/HPF) Ur Squamous Epith Cells None seen (0-5/HPF) Urine Bacteria None seen (None) Ur Culture Indicated? Cult not indicated Vol Urine Centrifuged 10ml (spun) Chlamy pneumoniae PCR (Not Detect) Adenovirus (PCR) (Not Detect) B. pertussis DNA (PCR) (Not Detect) B.parapertussis DNA PCR (Not Detecte) Coronavirus OC43 (PCR) (Not Detect) Coronavirus HKU1 (PCR) (Not Detect) Coronavirus 229E (PCR) (Not Detect) SARS-CoV-2 (PCR) (Negative) Coronavirus NL63 (PCR) (Not Detect) Human Metapneumovir PCR (Not Detect) Influenza A (RT-PCR) (NEGATIVE) Influenza Type A (PCR) (Not Detect) Influenza B (RT-PCR) (NEGATIVE) Influenza Type B (PCR) (Not Detect) M. pneumoniae (PCR) (Not Detect) Parainfluenza 1 (PCR) (Not Detect) Parainfluenza 2 (PCR) (Not Detect) Parainfluenza 3 (PCR) (Not Detect) Parainfluenza 4 (PCR) (Not Detect) RSV (PCR) Not detected (Negative) Entero/Rhino (PCR) Detected H (Not Detect) Imaging Data Chest x-ray: Radiologist's Impression: PROCEDURE: XR CHEST 1V INDICATIONS: short of breath TECHNIQUE: One view of the chest was acquired. COMPARISON: [facility], CR, XR CHEST 1V, 06/29/2023, 12:25. [facility], CR, XR CHEST 1V, 05/04/2023, 0:50. [facility], CR, XR CHEST 1V, 07/15/2023, 10:35. FINDINGS: Surgical changes and devices: None. Lungs and pleura: An incomplete inspiratory result is noted, causing a crowded appearance to the lung markings. No focal infiltrates are seen. No pneumothorax or significant pleural effusions are seen. Incidental note is made of an azygos lobe. Mediastinum: The cardiac contours are within normal limits. The aorta demonstrates calcification and tortuosity. Bones and chest wall: No suspicious bony lesions. Age-appropriate bony degenerative changes are seen. Overlying soft tissues appear unremarkable. IMPRESSION: Low lung volumes, as before. No focal infiltrates. Dictated by: Butch Douglas M.D. on 07/15/2024 at 12:08 CT scan - chest: Radiologist's Impression: PROCEDURE: CT ANGIO CHEST ABDOMEN PELVIS INDICATIONS: between shoulder blade pain TECHNIQUE: Precontrast 5 mm thick sections acquired from the lung apices to the iliac crests. After the administration of intravenous contrast, 2.5 mm thick sections again acquired from the lung apices to the iliac crests. Maximum intensity projection (MIP) oblique sagittal and coronal reformats were then acquired. For radiation dose reduction, the following was used: automated exposure control. COMPARISON: [facility], CT, CT ABDOMEN PELVIS W CON, 06/01/2022, 18:17. [facility], CR, XR CHEST 1V, 07/15/2024, 12:04. FINDINGS: Image quality: There is streak artifact seen through the level of the shoulders. AORTA: On precontrast imaging, no findings of acute mural hematomas can be seen. On postcontrast imaging, no dissection flap can be seen. No periaortic inflammatory change can be seen. Negative for aortic aneurysm. The ascending thoracic aorta measures 3.7 cm transversely on coronal images. CHEST: Lower Neck: No enlarged lymph nodes. Thyroid: No thyroid nodules which require sonographic evaluation. Axillae: No enlarged lymph nodes. Chest Wall: Unremarkable. Lungs and Pleura: No pneumothorax or pleural effusions. Mild dependent atelectasis can be seen on both sides. No consolidation or suspicious nodules. Incidental note is made of an azygos lobe. Heart: Heart size is normal. No pericardial effusion. Thoracic Vessels: Pulmonary arteries demonstrate normal size. No large or central pulmonary embolism is seen. Mediastinum and Conchita: No enlarged lymph nodes. Esophagus: No wall thickening. No significant hiatal hernia. ABDOMEN: Liver: No solid mass. Gallbladder: Layering gallstones are seen. No additional CT findings cholecystitis are seen. Biliary ducts: No biliary dilation. Pancreas: No ductal dilation. Spleen: Size is within normal limits. Adrenal Glands: No adrenal nodules. Kidneys and Ureters: No hydronephrosis. No solid mass. No complex renal cystic lesion which requires follow up. Stomach and Bowel: Moderate prominence of the colon can be seen, with liquid stool seen within the sigmoid colon. No dilated loops of small bowel are seen. Peritoneum: No abnormal intraperitoneal fluid. No free air. Ventral Wall: No hernia. Abdominal Nodes: No retroperitoneal or mesenteric adenopathy by size criteria. Vessels: Inferior vena cava is normal in size. Incidental note is made of a retroaortic left renal vein. PELVIS: Pelvic Organs: Unremarkable. Bladder: A Jack catheter is seen, which decompresses the bladder. Pelvic Nodes: No enlarged lymph nodes. Miscellaneous: There is a mild fat containing left inguinal hernia. Bones: S-shaped scoliotic curvature is seen. Age-appropriate bony degenerative changes are seen. IMPRESSION: Negative for aortic dissection or aneurysm. No large or central pulmonary embolism can be seen. Moderate prominence of the colon seen, with liquid stool within the sigmoid colon. Please correlate with clinical diarrhea. Additional findings: Azygos lobe Layering gallstones Retroaortic left renal vein Jack catheter Mild fat containing left inguinal hernia. Dictated by: Butch Douglas M.D. on 07/15/2024 at 13:40 ECG Data Attestation: I personally reviewed and interpreted this ECG as follows: Prior ECG tracings: available for review Interpretation: Sinus rhythm mild artifact no acute ischemic changes MDM Narrative Medical decision making narrative: MDM CC: Weakness, thoracic back pain Complicating co-morbidities: Hypertension Data collected from: Daughter and patient Medical records reviewed: Previous ED records Differential considered: Sepsis viral bacterial, electrolyte abnormality dissection acute coronary syndrome Exam documented above, pertinent findings include: Weak alert 83-year-old male breath sounds clear abdomen is soft heart regular no cyanosis mildly confused unknown of base Lab Test results independently reviewed as above. Pertinent findings: WBC 19.4 Lactate 4.8-->2.0 Procalcitonin 0.2 CMP sodium slightly low 130 potassium 3.5 chloride 95 carbon dioxide 16 BUN 10 creatinine 0.9 glucose 165 Troponin negative x2 BNP 626 Respiratory panel positive for rhinovirus Urinalysis negative Independently reviewed EKG as above no ischemia Imaging studies independently reviewed: Chest x-ray low lung volume CT chest abdomen and pelvis no dissection, no pulmonary embolism nothing abnormal in the abdomen Consultations: Dr. Kern accepts Treatments: Patient given sepsis fluids Zosyn Re-evaluations: Patient remains hemodynamically stable awake and alert but confused Discussion: Patient is an 83-year-old male presenting today with weakness he was overall poor historian most history was taken from the daughter whom he lives with. Just sounds like generally weak. He did fall earlier this week ride on his back it does not sound like he had head injury complaining of thoracic back pain. No evidence of fracture dissection on CT. He does not have any sort of respiratory distress his abdomen is soft and nontender. Unclear what his baseline mental status is. He does meet sepsis criteria with leukocytosis and elevated lactate and hypotension in the field. Hypotension has been solved. Imaging does not show any other source of infection. This time remains stable but weak. Discharge Plan Departure Patient Disposition: Admitted as Observation Clinical Impression: Sepsis, Acute metabolic encephalopathy, Rhinovirus Admit Date/Time: 07/15/24 15:26 Admit Provider: Chao Kern V
[2024-07-15 12:15] LABS: Add Manual Diff / Slide Review NO; Basophils Absolute Auto 0 /uL (0-100); Basophils Percent Auto 0.2 % (0-2); Eosinophils Absolute Auto 300 /uL (0-450); Eosinophils Percent Auto 1.8 % (2-4); Hematocrit 42.4 % (41-53); Hemoglobin 14.1 g/dL (13.5-17.5); Lymphocytes Absolute Auto 1700 /uL (1100-4500); Lymphocytes Percent Auto 8.7 % (25-40); Mean Corpuscular HGB Conc 33.3 % (30-36); Mean Corpuscular Hemoglobin 32.3 PG (26-34); Mean Corpuscular Volume 96.9 fL (80-100); Monocytes Absolute Auto 1400 /uL (0-900); Monocytes Percent Auto 7.1 % (3-14); Neutrophils Absolute Auto 15900 /uL (1500-7000); Neutrophils Percent Auto 82.2 % (50-75); Platelet Count 319 X10^3/uL (150-400); Red Blood Cell Count 4.37 X10^6/uL (4.5-5.9); Red Cell Distribution Width 13.1 % (11.6-14.8); White Blood Cell Count 19.4 X10^3/uL (4.5-11.0)
[2024-07-15 12:17] LABS: Prothrombin Time 11.5 SECONDS (9.4-12.5)
[2024-07-15 12:22] LABS: Alanine Aminotransferase 25 IU/L (<50); Albumin Globulin Ratio 1.5 (1.0-2.8); Alkaline Phosphatase 65 U/L (38-126); Aspartate Aminotransferase 37 IU/L (17-59); BUN Creatinine Ratio 11.1 (6-22); Bilirubin Total 0.9 mg/dL (0.2-1.3); Blood Urea Nitrogen 10 mg/dL (9-20); Calcium 9.8 mg/dL (8.4-10.2); Carbon Dioxide 16 mmol/L (22-32); Chloride 95 mmol/L (98-107); Creatine Kinase 96 U/L (55-170); Estimated Glomerular Filt Rate > 60 mL/min (>60); Globulin 3.4 g/dL (1.7-4.1); Glucose 165 mg/dL (70-99); HEMOLYSIS < 15 (0-50); Potassium 3.5 mmol/L (3.4-5.1); Sodium 130 mmol/L (137-145); Total Protein 8.4 g/dL (6.3-8.2)
[2024-07-15 12:24] LABS: Lactate (Lactic Acid) 4.8 mmol/L (0.7-2.1)
[2024-07-15 12:25] LABS: PTT Partial Thromboplastin Tim 36 SECONDS (25.1-36.5)
[2024-07-15 12:31] LABS: NT-proBNP (BNP-Adult 18+) 627 pg/mL (<450)
[2024-07-15 12:34] LABS: Troponin I < 0.012 ng/mL (0.01-0.034)
[2024-07-15 12:39] LABS: Procalcitonin 0.207 ng/mL (<0.5)
[2024-07-15] MEDS: SODIUM CHLORIDE 0.9% 2,466 ML 822 ML IV (12:50)
[2024-07-15 12:58] LABS: Influenza A - CEPHEID Flu A NEGATIVE (NEGATIVE); Influenza B - CEPHEID Flu B NEGATIVE (NEGATIVE); Respiratory Syncytial Virus Negative (Negative)
[2024-07-15 12:59] LABS: COVID-19 CEPHEID 4-PLEX PCR Negative (Negative)
[2024-07-15] MEDS: PIPERACILLIN/TAZO 4.5 GM in SODIUM CHLORIDE 0.9% 100 ML IV (13:07)
--- NOTE | 2024-07-15 13:38 | DI.CT.S_ITS ---
PROCEDURE: CT ANGIO CHEST ABDOMEN PELVIS INDICATIONS: between shoulder blade pain TECHNIQUE: Precontrast 5 mm thick sections acquired from the lung apices to the iliac crests. After the administration of intravenous contrast, 2.5 mm thick sections again acquired from the lung apices to the iliac crests. Maximum intensity projection (MIP) oblique sagittal and coronal reformats were then acquired. For radiation dose reduction, the following was used: automated exposure control. COMPARISON: [facility], CT, CT ABDOMEN PELVIS W CON, 06/01/2022, 18:17. [facility], CR, XR CHEST 1V, 07/15/2024, 12:04. FINDINGS: Image quality: There is streak artifact seen through the level of the shoulders. AORTA: On precontrast imaging, no findings of acute mural hematomas can be seen. On postcontrast imaging, no dissection flap can be seen. No periaortic inflammatory change can be seen. Negative for aortic aneurysm. The ascending thoracic aorta measures 3.7 cm transversely on coronal images. CHEST: Lower Neck: No enlarged lymph nodes. Thyroid: No thyroid nodules which require sonographic evaluation. Axillae: No enlarged lymph nodes. Chest Wall: Unremarkable. Lungs and Pleura: No pneumothorax or pleural effusions. Mild dependent atelectasis can be seen on both sides. No consolidation or suspicious nodules. Incidental note is made of an azygos lobe. Heart: Heart size is normal. No pericardial effusion. Thoracic Vessels: Pulmonary arteries demonstrate normal size. No large or central pulmonary embolism is seen. Mediastinum and [place]: No enlarged lymph nodes. Esophagus: No wall thickening. No significant hiatal hernia. ABDOMEN: Liver: No solid mass. Gallbladder: Layering gallstones are seen. No additional CT findings cholecystitis are seen. Biliary ducts: No biliary dilation. Pancreas: No ductal dilation. Spleen: Size is within normal limits. Adrenal Glands: No adrenal nodules. Kidneys and Ureters: No hydronephrosis. No solid mass. No complex renal cystic lesion which requires follow up. Stomach and Bowel: Moderate prominence of the colon can be seen, with liquid stool seen within the sigmoid colon. No dilated loops of small bowel are seen. Peritoneum: No abnormal intraperitoneal fluid. No free air. Ventral Wall: No hernia. Abdominal Nodes: No retroperitoneal or mesenteric adenopathy by size criteria. Vessels: Inferior vena cava is normal in size. Incidental note is made of a retroaortic left renal vein. PELVIS: Pelvic Organs: Unremarkable. Bladder: A Jack catheter is seen, which decompresses the bladder. Pelvic Nodes: No enlarged lymph nodes. Miscellaneous: There is a mild fat containing left inguinal hernia. Bones: S-shaped scoliotic curvature is seen. Age-appropriate bony degenerative changes are seen. IMPRESSION: Negative for aortic dissection or aneurysm. No large or central pulmonary embolism can be seen. Moderate prominence of the colon seen, with liquid stool within the sigmoid colon. Please correlate with clinical diarrhea. Additional findings: Azygos lobe Layering gallstones Retroaortic left renal vein Jack catheter Mild fat containing left inguinal hernia. Dictated by: Butch Douglas M.D. on 07/15/2024 at 13:40 Approved by: Butch Douglas M.D. on 07/15/2024 at 13:45
[2024-07-15 13:48] LABS: Reflexed Lactate in 2 Hours Y
[2024-07-15 14:19] LABS: Troponin I < 0.012 ng/mL (0.01-0.034)
[2024-07-15 14:41] LABS: Adenovirus Not Detected (Not Detect); B. parapertussis Not Detected (Not Detecte); Bordetella pertussis Not Detected (Not Detect); Chlamydophila pneumoniae Not Detected (Not Detect); Coronavirus 229E Not Detected (Not Detect); Coronavirus HKU1 Not Detected (Not Detect); Coronavirus NL 63 Not Detected (Not Detect); Coronavirus OC43 Not Detected (Not Detect); Human Metapneumovirus Not Detected (Not Detect); Human Rhinovirus/Enterovirus Detected (Not Detect); Influenza A Not Detected (Not Detect); Influenza B Not Detected (Not Detect); Mycoplasma pneumoniae Not Detected (Not Detect); Parainfluenza Virus 1 Not Detected (Not Detect); Parainfluenza Virus 2 Not Detected (Not Detect); Parainfluenza Virus 3 Not Detected (Not Detect); Parainfluenza Virus 4 Not Detected (Not Detect); Respiratory Syncytial Virus Not Detected (Not Detect); SARS- CoV-2 Not Detected (Not Detecte)
[2024-07-15 14:49] LABS: Appearance Urine UA CLEAR; Bilirubin Urine UA NEGATIVE (NEGATIVE); Color Urine UA YELLOW; Glucose Urine UA NEGATIVE (Negative); Ketones Urine UA NEGATIVE (NEGATIVE); Leukocyte Esterase Urine UA NEGATIVE (NEGATIVE); Nitrite Urine UA NEGATIVE (Negative); Occult Blood Urine UA NEGATIVE (Negative); Protein Urine UA NEGATIVE (Negative); Urobilinogen Urine UA 0.2 E.U./dL (0.2); pH Urine UA 5.5 (4.5-8.0)
[2024-07-15 14:50] LABS: Urine Volume 10mL (spun)
[2024-07-15 14:51] LABS: Bacteria Urine None Seen; Culture Indicated Urine Cult Not Indicated; RBC Urine None Seen (0-5/HPF); Squamous Epithelial Cell Urine None Seen (0-5/HPF); WBC Urine None Seen (0-5/HPF)
--- NOTE | 2024-07-15 15:55 | PM.HP.IH.1 ---
History of Present Illness History of Present Illness Date Patient Seen: 07/15/24 Time Patient Seen: 15:20 Chief complaint: weakness, pain between shoulder blades Narrative: 83-year-old man without a primary care provider living locally in [place], with history provided by the patient in the emergency department physician, states he has not been feeling well. Attempts to call his daughter listed as emergency contact in the chart go to voicemail without the option to leave a message. He is oriented only to person and asks what state he is in, and can not state the day, date, month or year. States for the past couple of years he has had fatigue, but recalls falling in the past week, perhaps past couple of days per the emergency department notes, and denies hitting his head or losing consciousness. He was evaluated by EMS reporting pain between the shoulder blades, states he feels nauseated and threw up once, and been feeling more short of breath lately. Evaluation emergency department was notable for an elevated white blood count and lactate of 4.8 that corrected with IV fluids to 2.0, and testing positive for rhino virus, otherwise unremarkable laboratory evaluation as detailed below. He was last seen at this hospital 1 year ago yesterday for SVT that responded to adenosine. He is living with his with their daughter. Meds Home Medications and Allergies Home Medications Medication Instructions Recorded Confirmed Type ondansetron 4 mg disintegrating 4 mg PO Q8H PRN nausea and 06/01/22 Rx tablet vomiting #20 tabs metoprolol tartrate 25 mg tablet 25 mg PO BID #60 tabs 06/29/23 Rx Allergies Allergy/AdvReac Type Severity Reaction Status Date / Time No Known Drug Allergies Allergy Verified 07/15/23 10:29 Review of Systems Review of Systems ROS: Yes All systems reviewed with the patient and are negative except as otherwise documented Exam Vital Signs (past 8 hours): - 07/15/24 11:46 07/15/24 11:47 07/15/24 11:54 Temperature 98.0 F Pulse Rate 92 H 92 H Respiratory Rate 27 H 18 Blood Pressure 113/54 L 113/54 L Pulse Oximetry 99 Oxygen Delivery Method Room Air 07/15/24 12:00 07/15/24 12:00 07/15/24 12:30 Temperature Pulse Rate 91 H 84 Respiratory Rate 24 24 Blood Pressure 104/56 L Pulse Oximetry 95 Oxygen Delivery Method 07/15/24 12:31 07/15/24 12:31 07/15/24 13:00 Temperature Pulse Rate 85 Respiratory Rate 25 H Blood Pressure 125/58 L 140/62 Pulse Oximetry Oxygen Delivery Method 07/15/24 13:00 07/15/24 13:30 07/15/24 13:30 Temperature Pulse Rate 76 79 Respiratory Rate 22 17 Blood Pressure 146/67 H Pulse Oximetry 95 96 Oxygen Delivery Method 07/15/24 14:00 07/15/24 14:00 07/15/24 14:30 Temperature Pulse Rate 80 85 Respiratory Rate 18 14 Blood Pressure 165/77 H Pulse Oximetry 96 96 Oxygen Delivery Method Oxygen Delivery Method Room Air Narrative Exam Narrative: GENERAL: This is a well-nourished, well-developed patient, in no apparent distress. HEAD: Atraumatic. Normocephalic. No temporal or scalp tenderness. EYES: Pupils equal round and reactive. Extraocular motions intact. No scleral icterus. No injection or drainage. ENT: Mucous membranes pink and moist. NECK: Trachea midline. No JVD, bruits or lymphadenopathy. Supple, nontender, no meningeal signs. CARDIOVASCULAR: Regular rate and rhythm without murmurs, gallops, or rubs. RESPIRATORY: Clear to auscultation. GASTROINTESTINAL: Abdomen soft, non-tender, nondistended. EXTREMITIES: No clubbing, cyanosis, or edema. BACK: Nontender without deformity or crepitance. No flank tenderness. NEUROLOGIC: Alert, oriented to person only, stating he does not the day, date, month, year or what state he is in, speech fluent, full upper and lower motor strength, no focal deficits evident. DERMATOLOGIC: No rashes or skin lesions. Objective ECG Impression: Normal sinus rhythm at 92bpm Inferior infarct , age undetermined Cannot rule out Anterior infarct , age undetermined Imaging *: Radiologist's impression: 1. Chest x-ray 07/15/2024: Low lung volumes, as before. No focal infiltrates. 2. Chest/abdomen/pelvis CT angiogram 07/15/2024: Negative for aortic dissection or aneurysm. No large or central pulmonary embolism can be seen. Moderate prominence of the colon seen, with liquid stool within the sigmoid colon. Please correlate with clinical diarrhea. Additional findings: Azygos lobe Layering gallstones Retroaortic left renal vein Jack catheter Mild fat containing left inguinal hernia. Labs 07/15/24 11:45 07/15/24 11:45 Labs: Laboratory Results - last 24 hr 07/15/24 07/15/24 07/15/24 11:45 12:15 12:15 WBC 19.4 H RBC 4.37 L Hgb 14.1 Hct 42.4 MCV 96.9 MCH 32.3 MCHC 33.3 RDW 13.1 Plt Count 319 Neut % (Auto) 82.2 H Lymph % (Auto) 8.7 L [place] % (Auto) 7.1 Eos % (Auto) 1.8 L Baso % (Auto) 0.2 Neut # (Auto) 65998 H Lymph # (Auto) 1700 [place] # (Auto) 1400 H Eos # (Auto) 300 Baso # (Auto) 0 PT 11.5 INR 1.0 APTT 36 Sodium 130 L Potassium 3.5 Chloride 95 L Carbon Dioxide 16 L BUN 10 Creatinine 0.90 Estimated GFR > 60 BUN/Creatinine Ratio 11.1 Glucose 165 H Lactate 4.8 H* Calcium 9.8 Total Bilirubin 0.9 AST 37 ALT 25 Alkaline Phosphatase 65 Total Creatine Kinase 96 Troponin I < 0.012 NT-Pro-B Natriuret Pep 627 H Total Protein 8.4 H Albumin 5.0 Globulin 3.4 Albumin/Globulin Ratio 1.5 Procalcitonin 0.207 Urine Color Urine Appearance Urine pH Ur Specific [place] Urine Protein Urine Glucose (UA) Urine Ketones Urine Occult Blood Urine Nitrate Urine Bilirubin Urine Urobilinogen Ur Leukocyte Esterase Urine RBC Urine WBC Ur Squamous Epith Cells Urine Bacteria Ur Culture Indicated? Vol Urine Centrifuged Chlamy pneumoniae PCR Not detected Adenovirus (PCR) Not detected B. pertussis DNA (PCR) Not detected B.parapertussis DNA PCR Not detected Coronavirus OC43 (PCR) Not detected Coronavirus HKU1 (PCR) Not detected Coronavirus 229E (PCR) Not detected SARS-CoV-2 (PCR) Negative Not detected Coronavirus NL63 (PCR) Not detected Human Metapneumovir PCR Not detected Influenza A (RT-PCR) Flu a negative Influenza Type A (PCR) Not detected Influenza B (RT-PCR) Flu b negative Influenza Type B (PCR) Not detected M. pneumoniae (PCR) Not detected Parainfluenza 1 (PCR) Not detected Parainfluenza 2 (PCR) Not detected Parainfluenza 3 (PCR) Not detected Parainfluenza 4 (PCR) Not detected RSV (PCR) Negative Entero/Rhino (PCR) 07/15/24 07/15/24 07/15/24 12:15 13:43 14:13 WBC RBC Hgb Hct MCV MCH MCHC RDW Plt Count Neut % (Auto) Lymph % (Auto) [place] % (Auto) Eos % (Auto) Baso % (Auto) Neut # (Auto) Lymph # (Auto) [place] # (Auto) Eos # (Auto) Baso # (Auto) PT INR APTT Sodium Potassium Chloride Carbon Dioxide BUN Creatinine Estimated GFR BUN/Creatinine Ratio Glucose Lactate 2.0 Calcium Total Bilirubin AST ALT Alkaline Phosphatase Total Creatine Kinase Troponin I < 0.012 NT-Pro-B Natriuret Pep Total Protein Albumin Globulin Albumin/Globulin Ratio Procalcitonin Urine Color Yellow Urine Appearance Clear Urine pH 5.5 Ur Specific [place] 1.010 Urine Protein Negative Urine Glucose (UA) Negative Urine Ketones Negative Urine Occult Blood Negative Urine Nitrate Negative Urine Bilirubin Negative Urine Urobilinogen 0.2 Ur Leukocyte Esterase Negative Urine RBC None seen Urine WBC None seen Ur Squamous Epith Cells None seen Urine Bacteria None seen Ur Culture Indicated? Cult not indicated Vol Urine Centrifuged 10ml (spun) Chlamy pneumoniae PCR Adenovirus (PCR) B. pertussis DNA (PCR) B.parapertussis DNA PCR Coronavirus OC43 (PCR) Coronavirus HKU1 (PCR) Coronavirus 229E (PCR) SARS-CoV-2 (PCR) Coronavirus NL63 (PCR) Human Metapneumovir PCR Influenza A (RT-PCR) Influenza Type A (PCR) Influenza B (RT-PCR) Influenza Type B (PCR) M. pneumoniae (PCR) Parainfluenza 1 (PCR) Parainfluenza 2 (PCR) Parainfluenza 3 (PCR) Parainfluenza 4 (PCR) RSV (PCR) Not detected Entero/Rhino (PCR) Detected H Assessment & Plan Assessment & Plan narrative: 1. Weakness, confusion, leukocytosis. Etiology unclear. No overt evidence of infection except for elevated white blood count, with normal procalcitonin. 2. Elevated serum lactate, likely due to dehydration, corrected. 3. Positive respiratory test for rhino virus. Can not rule out early pneumonia. Continue IV ceftriaxone and azithromycin following dose of IV Zosyn in the ER. 4. Cognitive impairment, acute encephalopathy versus chronic dementia, history of falls. Attempted corroborate history with family when present. Check head CT (rule out chronic subdural hematoma, NPH, neoplasm), B12, folate, TSH. 5. Recent fall, without evidence of injury. Monitor clinically. 6. History of supraventricular tachycardia. No evidence of recurrence. Monitor on telemetry. Plan: -admit to observation -IV hydration -empiric ceftriaxone and azithromycin -follow clinically -attempt to contact family -head CT, B12, folate, TSH DVT prophylaxis: Lovenox Code status: Full code. Quality MIPS - Admit I confirm the patient?s Advance Care Plan is present, Code status is documented, Surrogate decision maker is in patient?s record [If Yes, STOP here]: Yes [facility] - Meds 'Current medications' to include all prescriptions, [id number] products, herbals, cannabis/cannabidiol products, and vitamin/mineral/dietary (nutritional) supplements. I have utilized all available resources to obtain, update, or review the patient?s current medications. [If Yes, STOP here]: Yes [employer] Document charge(s): No Charge Codes Initial inpatient/observation care: [id number]
--- NOTE | 2024-07-15 16:12 | DI.CT.S_ITS ---
PROCEDURE: CT HEAD/BRAIN WO CON INDICATIONS: confusion, fall TECHNIQUE: Noncontrast 4.5 mm thick angled axial sections acquired from the foramen magnum to the vertex, with coronal and sagittal reformats. For radiation dose reduction, the following was used: automated exposure control, adjustment of mA and/or kV according to patient size. COMPARISON: [facility], CT, CT ANGIO CHEST ABDOMEN PELVIS, 07/15/2024, 14:09. [facility], CT, CT HEAD/BRAIN WO CON, 06/01/2022, 14:58. FINDINGS: Image quality: Diagnostic. CSF spaces: Basal cisterns are patent. No extra-axial fluid collections. The ventricles are symmetric in size and shape. Brain: No intracranial bleeds or mass effect. There is cerebral volume loss, with resultant ventricular and sulcal prominence. There are periventricular and deep white matter chronic small vessel ischemic changes. There is a remote right [employer]OURCE MANAGEMENT SPECIALIST territory infarction seen. Remote basal ganglia lacunar infarctions can be seen. There is intracranial internal carotid artery atherosclerosis. Skull and face: Calvarium and visualized facial bones appear intact, without suspicious lesions. Sinuses: Multifocal moderate paranasal sinus disease can be seen, which is improved compared to 2022. No abnormal fluid is seen within the mastoid air cells. IMPRESSION: No acute intracranial hemorrhage is seen. No acute intracranial process is seen. Remote right RESOURCE MANAGEMENT SPECIALIST territory infarction. Remote bilateral basal ganglia lacunar infarctions. Moderate paranasal sinus disease, improved compared to the prior. Dictated by: Butch Douglas M.D. on 07/15/2024 at 16:04 Approved by: Butch Douglas M.D. on 07/15/2024 at 16:06
[2024-07-15 16:58] LABS: TSH w/ Reflex to FT4 3.11 uIU/mL (0.47-4.68)
[2024-07-15 17:16] LABS: Vitamin B12 Reflex MMA if <400 575 pg/mL (239-931)
[2024-07-15 17:33] LABS: Folate 12.7 ng/mL (2.76-20.0)
[2024-07-15] MEDS: cefTRIAXone 1,000 MG in SODIUM CHLORIDE 0.9% 100 ML 200 MG IV (17:55)
[2024-07-15] MEDS: DEXTROSE 5%-0.45% NS 1,000 ML 100 ML IV (17:56)
[2024-07-15] MEDS: AZITHROMYCIN 500 MG in DEXTROSE 5% IN WATER 250 ML 250 MG IV (18:49)
[2024-07-15] MEDS: METOPROLOL IR 25 MG TABLET 12.5 MG PO (21:04)
[2024-07-15] MEDS: GABAPENTIN 600 MG TABLET 1200 MG PO (21:04)
[2024-07-16] VITALS: BP 137/54; PULSE 72; RESP 18; TEMP 36.8; O2SAT 93
[2024-07-16 04:00] VITALS: BP 152/64; PULSE 78; RESP 18; TEMP 36.6; O2SAT 95
[2024-07-16 06:17] LABS: Add Manual Diff / Slide Review NO; Basophils Absolute Auto 0 /uL (0-100); Basophils Percent Auto 0.2 % (0-2); Eosinophils Absolute Auto 100 /uL (0-450); Eosinophils Percent Auto 1.1 % (2-4); Hematocrit 33.7 % (41-53); Hemoglobin 11.3 g/dL (13.5-17.5); Lymphocytes Absolute Auto 700 /uL (1100-4500); Lymphocytes Percent Auto 6.2 % (25-40); Mean Corpuscular HGB Conc 33.7 % (30-36); Mean Corpuscular Hemoglobin 32.5 PG (26-34); Mean Corpuscular Volume 96.5 fL (80-100); Monocytes Absolute Auto 800 /uL (0-900); Monocytes Percent Auto 6.9 % (3-14); Neutrophils Absolute Auto 10100 /uL (1500-7000); Neutrophils Percent Auto 85.6 % (50-75); Platelet Count 180 X10^3/uL (150-400); Red Blood Cell Count 3.49 X10^6/uL (4.5-5.9); Red Cell Distribution Width 13.2 % (11.6-14.8); White Blood Cell Count 11.8 X10^3/uL (4.5-11.0)
[2024-07-16 06:24] LABS: Alanine Aminotransferase 18 IU/L (<50); Albumin 3.9 g/dL (3.5-5.0); Albumin Globulin Ratio 1.4 (1.0-2.8); Alkaline Phosphatase 38 U/L (38-126); Aspartate Aminotransferase 33 IU/L (17-59); BUN Creatinine Ratio 10.4 (6-22); Bilirubin Total 0.6 mg/dL (0.2-1.3); Blood Urea Nitrogen 8 mg/dL (9-20); Calcium 8.5 mg/dL (8.4-10.2); Carbon Dioxide 25 mmol/L (22-32); Chloride 97 mmol/L (98-107); Estimated Glomerular Filt Rate > 60 mL/min (>60); Globulin 2.7 g/dL (1.7-4.1); Glucose 123 mg/dL (70-99); HEMOLYSIS < 15 (0-50); Potassium 3.6 mmol/L (3.4-5.1); Sodium 130 mmol/L (137-145); Total Protein 6.6 g/dL (6.3-8.2)
[2024-07-16] MEDS: DEXTROSE 5%-0.45% NS 1,000 ML 100 ML IV (06:33)
[2024-07-16 06:36] LABS: Troponin I 0.016 ng/mL (0.01-0.034)
--- NOTE | 2024-07-16 07:52 | P.PN_ITS ---
Subjective Subjective Date Patient Seen: 07/16/24 Interval history: Narrative: 83-year-old man without a primary care provider living locally in [place], with history provided by the patient in the emergency department physician, states he has not been feeling well. Attempts to call his daughter listed as emergency contact in the chart go to voicemail without the option to leave a message. He is oriented only to person and asks what state he is in, and can not state the day, date, month or year. States for the past couple of years he has had fatigue, but recalls falling in the past week, perhaps past couple of days per the emergency department notes, and denies hitting his head or losing consciousness. He was evaluated by EMS reporting pain between the shoulder blades, states he feels nauseated and threw up once, and been feeling more short of breath lately. Evaluation emergency department was notable for an elevated white blood count and lactate of 4.8 that corrected with IV fluids to 2.0, and testing positive for rhino virus, otherwise unremarkable laboratory evaluation as detailed below. He was last seen at this hospital 1 year ago yesterday for SVT that responded to adenosine. He is living with his with their daughter. Interim history: 07/16: Exam Vital Signs (past 8 hours): - 07/16/24 00:00 07/16/24 04:00 Temperature 98.2 F 98 F Pulse Rate 72 78 Respiratory Rate 18 18 Blood Pressure 137/54 L 152/64 H Pulse Oximetry 93 95 Oxygen Delivery Method Room Air Oxygen Flow Rate 0 Objective ECG Impression: Normal sinus rhythm at 92bpm Inferior infarct , age undetermined Cannot rule out Anterior infarct , age undetermined Imaging *: Radiologist's impression: 1. Chest x-ray 07/15/2024: Low lung volumes, as before. No focal infiltrates. 2. Chest/abdomen/pelvis CT angiogram 07/15/2024: Negative for aortic dissection or aneurysm. No large or central pulmonary embolism can be seen. Moderate prominence of the colon seen, with liquid stool within the sigmoid colon. Please correlate with clinical diarrhea. Additional findings: Azygos lobe Layering gallstones Retroaortic left renal vein Jack catheter Mild fat containing left inguinal hernia. 3. Head CT 07/15/2024: No acute intracranial hemorrhage is seen. No acute intracranial process is seen. Remote right [employer]RAW[employer] K[employer] territory infarction. Remote bilateral basal ganglia lacunar infarctions. Moderate paranasal sinus disease, improved compared to the prior. Labs 07/16/24 05:50 07/16/24 05:50 Labs: Laboratory Results - last 24 hr 07/15/24 07/15/24 07/15/24 11:45 12:15 12:15 WBC 19.4 H RBC 4.37 L Hgb 14.1 Hct 42.4 MCV 96.9 MCH 32.3 MCHC 33.3 RDW 13.1 Plt Count 319 Neut % (Auto) 82.2 H Lymph % (Auto) 8.7 L [place] % (Auto) 7.1 Eos % (Auto) 1.8 L Baso % (Auto) 0.2 Neut # (Auto) 74183 H Lymph # (Auto) 1700 [place] # (Auto) 1400 H Eos # (Auto) 300 Baso # (Auto) 0 PT 11.5 INR 1.0 APTT 36 Sodium 130 L Potassium 3.5 Chloride 95 L Carbon Dioxide 16 L BUN 10 Creatinine 0.90 Estimated GFR > 60 BUN/Creatinine Ratio 11.1 Glucose 165 H Lactate 4.8 H* Calcium 9.8 Total Bilirubin 0.9 AST 37 ALT 25 Alkaline Phosphatase 65 Total Creatine Kinase 96 Troponin I < 0.012 NT-Pro-B Natriuret Pep 627 H Total Protein 8.4 H Albumin 5.0 Globulin 3.4 Albumin/Globulin Ratio 1.5 Vitamin B12 575 Folate 12.7 Procalcitonin 0.207 TSH 3.11 Urine Color Urine Appearance Urine pH Ur Specific [place] Urine Protein Urine Glucose (UA) Urine Ketones Urine Occult Blood Urine Nitrate Urine Bilirubin Urine Urobilinogen Ur Leukocyte Esterase Urine RBC Urine WBC Ur Squamous Epith Cells Urine Bacteria Ur Culture Indicated? Vol Urine Centrifuged Chlamy pneumoniae PCR Not detected Adenovirus (PCR) Not detected B. pertussis DNA (PCR) Not detected B.parapertussis DNA PCR Not detected Coronavirus OC43 (PCR) Not detected Coronavirus HKU1 (PCR) Not detected Coronavirus 229E (PCR) Not detected SARS-CoV-2 (PCR) Negative Not detected Coronavirus NL63 (PCR) Not detected Human Metapneumovir PCR Not detected Influenza A (RT-PCR) Flu a negative Influenza Type A (PCR) Not detected Influenza B (RT-PCR) Flu b negative Influenza Type B (PCR) Not detected M. pneumoniae (PCR) Not detected Parainfluenza 1 (PCR) Not detected Parainfluenza 2 (PCR) Not detected Parainfluenza 3 (PCR) Not detected Parainfluenza 4 (PCR) Not detected RSV (PCR) Negative Entero/Rhino (PCR) 07/15/24 07/15/24 07/15/24 12:15 13:43 14:13 WBC RBC Hgb Hct MCV MCH MCHC RDW Plt Count Neut % (Auto) Lymph % (Auto) [place] % (Auto) Eos % (Auto) Baso % (Auto) Neut # (Auto) Lymph # (Auto) [place] # (Auto) Eos # (Auto) Baso # (Auto) PT INR APTT Sodium Potassium Chloride Carbon Dioxide BUN Creatinine Estimated GFR BUN/Creatinine Ratio Glucose Lactate 2.0 Calcium Total Bilirubin AST ALT Alkaline Phosphatase Total Creatine Kinase Troponin I < 0.012 NT-Pro-B Natriuret Pep Total Protein Albumin Globulin Albumin/Globulin Ratio Vitamin B12 Folate Procalcitonin TSH Urine Color Yellow Urine Appearance Clear Urine pH 5.5 Ur Specific [place] 1.010 Urine Protein Negative Urine Glucose (UA) Negative Urine Ketones Negative Urine Occult Blood Negative Urine Nitrate Negative Urine Bilirubin Negative Urine Urobilinogen 0.2 Ur Leukocyte Esterase Negative Urine RBC None seen Urine WBC None seen Ur Squamous Epith Cells None seen Urine Bacteria None seen Ur Culture Indicated? Cult not indicated Vol Urine Centrifuged 10ml (spun) Chlamy pneumoniae PCR Adenovirus (PCR) B. pertussis DNA (PCR) B.parapertussis DNA PCR Coronavirus OC43 (PCR) Coronavirus HKU1 (PCR) Coronavirus 229E (PCR) SARS-CoV-2 (PCR) Coronavirus NL63 (PCR) Human Metapneumovir PCR Influenza A (RT-PCR) Influenza Type A (PCR) Influenza B (RT-PCR) Influenza Type B (PCR) M. pneumoniae (PCR) Parainfluenza 1 (PCR) Parainfluenza 2 (PCR) Parainfluenza 3 (PCR) Parainfluenza 4 (PCR) RSV (PCR) Not detected Entero/Rhino (PCR) Detected H 07/16/24 05:50 WBC 11.8 H RBC 3.49 L Hgb 11.3 L Hct 33.7 L MCV 96.5 MCH 32.5 MCHC 33.7 RDW 13.2 Plt Count 180 Neut % (Auto) 85.6 H Lymph % (Auto) 6.2 L [place] % (Auto) 6.9 Eos % (Auto) 1.1 L Baso % (Auto) 0.2 Neut # (Auto) 26270 H Lymph # (Auto) 700 L [place] # (Auto) 800 Eos # (Auto) 100 Baso # (Auto) 0 PT INR APTT Sodium 130 L Potassium 3.6 Chloride 97 L Carbon Dioxide 25 BUN 8 L Creatinine 0.77 Estimated GFR > 60 BUN/Creatinine Ratio 10.4 Glucose 123 H Lactate Calcium 8.5 Total Bilirubin 0.6 AST 33 ALT 18 Alkaline Phosphatase 38 Total Creatine Kinase Troponin I 0.016 NT-Pro-B Natriuret Pep Total Protein 6.6 Albumin 3.9 Globulin 2.7 Albumin/Globulin Ratio 1.4 Vitamin B12 Folate Procalcitonin TSH Urine Color Urine Appearance Urine pH Ur Specific [place] Urine Protein Urine Glucose (UA) Urine Ketones Urine Occult Blood Urine Nitrate Urine Bilirubin Urine Urobilinogen Ur Leukocyte Esterase Urine RBC Urine WBC Ur Squamous Epith Cells Urine Bacteria Ur Culture Indicated? Vol Urine Centrifuged Chlamy pneumoniae PCR Adenovirus (PCR) B. pertussis DNA (PCR) B.parapertussis DNA PCR Coronavirus OC43 (PCR) Coronavirus HKU1 (PCR) Coronavirus 229E (PCR) SARS-CoV-2 (PCR) Coronavirus NL63 (PCR) Human Metapneumovir PCR Influenza A (RT-PCR) Influenza Type A (PCR) Influenza B (RT-PCR) Influenza Type B (PCR) M. pneumoniae (PCR) Parainfluenza 1 (PCR) Parainfluenza 2 (PCR) Parainfluenza 3 (PCR) Parainfluenza 4 (PCR) RSV (PCR) Entero/Rhino (PCR) [facility] Social History Smoking Status: Never smoker alcohol intake: former Assessment & Plan Assessment & Plan narrative: 1. Weakness, confusion, leukocytosis. Etiology unclear. No overt evidence of infection except for elevated white blood count, with normal procalcitonin. 2. Elevated serum lactate, likely due to dehydration, corrected. 3. Positive respiratory test for rhino virus. Can not rule out early pneumonia. Continue IV ceftriaxone and azithromycin following dose of IV Zosyn in the ER. 4. Cognitive impairment, acute encephalopathy versus chronic dementia, history of falls. Old stroke by head CT (ruled out chronic subdural hematoma, NPH, neoplasm), with normal B12, folate, TSH. 5. Recent fall, without evidence of injury. Monitor clinically. 6. History of stroke. 7. History of supraventricular tachycardia. No evidence of recurrence. Monitor on telemetry. 8. Diabetes mellitus. Stable on metformin. 9. Peripheral neuropathy. Stable on gabapentin. Plan: -stop IV hydration -empiric ceftriaxone and azithromycin -PT consult fall risk -follow clinically DVT prophylaxis: Lovenox Code status: Full code. Quality VTE Deep Vein Thrombosis/Pulmonary Embolism Present on Admission: No
[2024-07-16 08:00] VITALS: BP 132/67; PULSE 61; RESP 17; TEMP 37.3; O2SAT 96
[2024-07-16] MEDS: INSULIN LISPRO 100 UNIT/ML 3ML VIAL SUBCUT ×2 (08:25→12:28)
[2024-07-16] MEDS: METFORMIN HCL 500 MG TABLET PO (08:26)
[2024-07-16] MEDS: ENOXAPARIN 40 MG/0.4 ML SYRINGE SUBCUT (08:26)
[2024-07-16] MEDS: METOPROLOL IR 25 MG TABLET 12.5 MG PO (08:27)
[2024-07-16] MEDS: GABAPENTIN 600 MG TABLET 1200 MG PO (08:27)
--- NOTE | 2024-07-16 11:02 | PT.IIE ---
Physical Therapy Inpatient Evaluation/Re-Eval M1 PT/OT-IP Prior Functional Status Start: 07/16/24 08:21 Freq: NEEDED Status: Active Protocol: Document 07/16/24 10:36 MB (Rec: 07/16/24 11:02 MB Desktop) Medical Review Prior Functional Status Communication Unsure baseline diet Mobility and Gait Unsure baseline mobility, per rounds, pt lives with his who has dementia in basement apartment area of daughter's home in [facility] Social History Household Members family Living Arrangements House Number of Stairs To Enter/Railing? Unsure how many steps at home, lives in basement apartment of daughter's home with who has dementia Additional Social History Comment Pt cannot answer questions, is very agitated with all PT simple commands and questions, presents with confusion M2 PT-IP Current Condition Start: 07/16/24 08:21 Freq: NEEDED Status: Active Protocol: Document 07/16/24 10:36 MB (Rec: 07/16/24 11:02 MB Desktop) Physical Therapy Current Condition Current Condition Evaluation Date 07/16/24 Treatment Diagnosis AMS, fall M3 PT-IP Subjective Start: 07/16/24 08:21 Freq: NEEDED Status: Active Protocol: Document 07/16/24 10:36 MB (Rec: 07/16/24 11:02 MB Desktop) Subjective Physical Therapy Visit Type Type Initial Evaluation Visit Start Time 10:36 Visit Stop Time 10:51 Number of SENIOR LANDSCAPE ARCHITECT Visits 0 Physical Therapy Visit Comments Patient Comments Pt con't to state, what brought all this on? Pt is agitated, c/o PT's hand and gait belt being cold, thinks he is at home watching gun shows, asks PT x2 if PT is doctor, has trouble remembering short functional cues like getting to EOB, stand up and get to EOB Therapy Pain Assessment Pain When Pain Assessed No answer M4 PT-IP Mobility and Gait Start: 07/16/24 08:21 Freq: NEEDED Status: Active Protocol: Document 07/16/24 10:36 MB (Rec: 07/16/24 11:02 MB Desktop) PT-Bed Mobility Assessment Rolling Type of Rolling Roll to Left Level of Assist Contact Guard Assistance Supine to Sit Supine to Sit Contact Guard Assistance,1 Person Assistance,Head of Bed Elevated,Bedrails Scooting Scooting to Edge of Bed Contact Guard Assistance PT-Transfer Assessment Sit to and From Stand Sit to and from Stand Minimal Assistance Equipment Transfer Assistive Device Gait Belt,Front Wheeled Walker Orthotic/Prosthetic Devices or Brace: No Transfers Transfer Destination Chair Transfer Technique Stepping Transfer Ability Level of Assist Minimal Assistance,1 Person Assistance,Use of Upper Extremities Comments Mobility Comments Very forward, flexed posture. There is blood on bedding and nsg states that pt pulled out IV. B LEs appears to have rashes as PT doffs IVCC booties Gait Assessment Gait Gait Assistance Required: Minimum Assistance Distance (Feet) 2 Assistive Devices Assistive Device Gait Belt,Front Wheeled Walker Gait Deviations General Gait Pattern Antalgic,Decreased Stride Length,Decreased Feet Clearance,Flexed Trunk,Step-to Gait,Wide Based Gait Factors Limiting Gait Function Factors Limiting Gait Function Decreased Activity Tolerance, Decreased Strength,Difficulty Following Directions, Incoordination,Limited Range of Motion,Pain,Poor Balance, Poor Safety Awareness Comments Gait Comments Very poor command-following, tends to push walker too far in front, easily agitated with PT PT-Balance Assessment Sitting Balance and Reactions Static Sitting Balance Ability Fair Dynamic Sitting Balance Ability Fair Standing Balance and Reactions Static Standing Balance Ability Fair Dynamic Standing Balance Ability Fair Device Used RW M5 PT-IP Objective Assessments Start: 07/16/24 08:21 Freq: NEEDED Status: Active Protocol: Document 07/16/24 10:36 MB (Rec: 07/16/24 11:02 MB Desktop) Orientation Orientation/Cognition Level of Alertness Confusional State Orientation Name Safety Awareness Decreased Safety Awareness Memory Description Short Term Impaired,Environmental Lead Impaired Gross Range of Motion Upper Extremity ROM Impairments Cannot follow commands Lower Extremity ROM Impairments Cannot follow commands Strength Comments Strength Comments Cannot follow ROM or MMT and appears functionally weak Coordination Assessment Assessment Coordination Comments Cannot follow commands Sensation Assessment Comments Sensation Comments Cannot follow commands M7 PT-IP Assessment and Plan Start: 07/16/24 08:21 Freq: NEEDED Status: Active Protocol: Document 07/16/24 10:36 MB (Rec: 07/16/24 11:02 MB Desktop) PT Summary Assessment and Plan Potential Rehabilitation Potential Poor Status of Condition at Evaluation Evolving Summary Impairments ROM,Strength,Balance, Coordination,Cognition,Bed Mobility,Transfers,Gait, Activity Tolerance Assessment Summary Pt is an 83 y/o male presenting with weakness, AMS, fall. He is only alert and oriented to his name and he is agitated with all PT simple commands and gentle touch. He has trouble understanding and remembering short functional commands. He is currently CGA to min A for short mobility with the walker. He will require 24 hour assistance and may benefit from PT consult at d/c, recommend [facility] for the long-term if he and his have dementia. Goals Bed Mobility Goal Standby Assistance Transfer Goal Standby Assistance,Front Wheeled Walker,Four Wheeled Walker Gait Goal Standby Assistance,Front Wheel Walker,Four Wheel Walker Gait Distance 50 Other Goals Ascend and descend steps with rail or LRAD if needed for d/c , unable to determine d/c location and set-up on eval date. Days to Meet Goals 5 Frequency of Treatment Frequency Of Treatment Once a Day Treatment Plan Physical Therapy Treatment Plan Bed Mobility Training,Transfer Training,Gait Training, Therapeutic Exercise,Balance Retraining,Discharge Planning, Hot or Cold Pack,Neuromuscular Re-ed,Coordination Retraining ,Manual Therapy Recommendations To Nursing Amount of Assist Needed 2 Person Assist Discharge Recommendations PT Discharge Recommendations Home with 24/ Assist Available,Home Health,Home vs SNF Other Discharge Recommendations [facility] for long-term Transportation Needs at Discharge Private Vehicle - PT assist 1
[2024-07-16 12:00] VITALS: BP 144/64; PULSE 59; RESP 16; TEMP 37.2; O2SAT 96
--- NOTE | 2024-07-16 17:03 | PM.DS.IH.1 ---
History of Present Illness History of Present Illness Date Patient Seen: 07/16/24 Time Patient Seen: 08:38 Chief complaint: weakness, pain between shoulder blades Narrative: 83-year-old man without a primary care provider living locally in [place], with history provided by the patient in the emergency department physician, states he has not been feeling well. Attempts to call his daughter listed as emergency contact in the chart go to voicemail without the option to leave a message. He is oriented only to person and asks what state he is in, and can not state the day, date, month or year. States for the past couple of years he has had fatigue, but recalls falling in the past week, perhaps past couple of days per the emergency department notes, and denies hitting his head or losing consciousness. He was evaluated by EMS reporting pain between the shoulder blades, states he feels nauseated and threw up once, and been feeling more short of breath lately. Evaluation emergency department was notable for an elevated white blood count and lactate of 4.8 that corrected with IV fluids to 2.0, and testing positive for rhino virus, otherwise unremarkable laboratory evaluation as detailed below. He was last seen at this hospital 1 year ago yesterday for SVT that responded to adenosine. He is living with his with their daughter. Discharge Providers Provider Date of admission: 07/15/24 15:26 Discharge Date: 07/16/24 Primary care physician: Doctor Chantel MD Consults: 07/16/24 07:56 Consult to Physical Therapy Evaluate & Treat Comment: Physician Instructions: Evaluate and Treat Discharge provider: Chao Kern MD Summary Hospital Course Discharge Diagnosis: 1. Weakness, confusion, leukocytosis, likely due to community-acquired pneumonia. 2. Elevated serum lactate, likely due to dehydration, corrected. 3. Positive respiratory test for rhino virus. 4. Cognitive impairment, acute encephalopathy in the setting of chronic dementia, history of falls. 5. Recent fall, without evidence of injury. 6. History of supraventricular tachycardia. 7. History of stroke. 8. Diabetes mellitus, type 2. 9. Hyperlipidemia. Status at Discharge Cognitive/behavioral status at discharge: oriented Functional status at discharge: uses cane/walker Overall status at discharge: patient is progressing back to baseline Time Spent with Patient Time spent: Greater than 30 minutes Exam Vital Signs (past 8 hours): - 07/16/24 12:00 Temperature 98.9 F Pulse Rate 59 L Respiratory Rate 16 Blood Pressure 144/64 H Pulse Oximetry 96 Oxygen Flow Rate 0 Oxygen Delivery Method Room Air Oxygen Flow Rate 0 Narrative Exam Narrative: GENERAL: This is a well-nourished, well-developed patient, in no apparent distress. EYES: Pupils equal round and reactive. Extraocular motions intact. No scleral icterus. No injection or drainage. ENT: Mucous membranes pink and moist. NECK: Trachea midline. No JVD, bruits or lymphadenopathy. Supple, nontender, no meningeal signs. CARDIOVASCULAR: Regular rate and rhythm without murmurs, gallops, or rubs. RESPIRATORY: Clear to auscultation. GASTROINTESTINAL: Abdomen soft, non-tender, nondistended. EXTREMITIES: No clubbing, cyanosis, or edema. BACK: Nontender without deformity or crepitance. No flank tenderness. NEUROLOGIC: Alert, oriented to person only, speech fluent, full upper and lower motor strength, no focal deficits evident. DERMATOLOGIC: No rashes or skin lesions. Objective ECG Impression: Normal sinus rhythm at 92bpm Inferior infarct , age undetermined Cannot rule out Anterior infarct , age undetermined Imaging *: Radiologist's impression: 1. Chest x-ray 07/15/2024: Low lung volumes, as before. No focal infiltrates. 2. Chest/abdomen/pelvis CT angiogram 07/15/2024: Negative for aortic dissection or aneurysm. No large or central pulmonary embolism can be seen. Moderate prominence of the colon seen, with liquid stool within the sigmoid colon. Please correlate with clinical diarrhea. Additional findings: Azygos lobe Layering gallstones Retroaortic left renal vein Jack catheter Mild fat containing left inguinal hernia. Labs 07/16/24 05:50 07/16/24 05:50 Labs: Laboratory Results - last 24 hr 07/15/24 07/16/24 11:45 05:50 WBC 11.8 H RBC 3.49 L Hgb 11.3 L Hct 33.7 L MCV 96.5 MCH 32.5 MCHC 33.7 RDW 13.2 Plt Count 180 Neut % (Auto) 85.6 H Lymph % (Auto) 6.[address] [place] % (Auto) 6.9 Eos % (Auto) 1.1 L Baso % (Auto) 0.2 Neut # (Auto) 34487 H Lymph # (Auto) [address] [place] # (Auto) 800 Eos # (Auto) 100 Baso # (Auto) 0 Sodium 130 L Potassium 3.6 Chloride 97 L Carbon Dioxide 25 BUN 8 L Creatinine 0.77 Estimated GFR > 60 BUN/Creatinine Ratio 10.4 Glucose 123 H Calcium 8.5 Total Bilirubin 0.6 AST 33 ALT 18 Alkaline Phosphatase 38 Troponin I 0.016 Total Protein 6.6 Albumin 3.9 Globulin 2.7 Albumin/Globulin Ratio 1.4 Vitamin B12 575 Folate 12.7 PFSH Social History household members: family Smoking Status: Never smoker alcohol intake: former Discharge Plan Discharge Plan Patient Disposition: Home Provider Discharge Comment: Followup with primary care provider in 1 week Discharge orders & Medications Prescriptions: New cefuroxime axetil 500 mg tablet 500 mg PO BID Qty: 10 0RF Continued metoprolol tartrate 25 mg tablet 12.5 mg PO BID atorvastatin 80 mg PO BEDTIME gabapentin 1,200 mg PO TID Discontinued ondansetron 4 mg tablet,disintegrating 4 mg PO Q8H PRN (Reason: nausea and vomiting) Qty: 20 0RF Follow up/Referrals: Doctor Golden MD [Primary Care Provider] - Visit Report/Discharge Packet Stand Alone Forms: Patient Portal/API, Stroke Signs & Symptoms Discharge Data Primary Care Provider: Doctor Chantel Attending Provider: Chao Kern V Admit Date/Time: 07/15/24 15:26 Quality VTE Deep Vein Thrombosis/Pulmonary Embolism Present on Admission: No MIPS - Admit I confirm the patient?s Advance Care Plan is present, Code status is documented, Surrogate decision maker is in patient?s record [If Yes, STOP here]: Yes MIPS - Meds 'Current medications' to include all prescriptions, nosk-asw-ceudhvo products, herbals, cannabis/cannabidiol products, and vitamin/mineral/dietary (nutritional) supplements. I have utilized all available resources to obtain, update, or review the patient?s current medications. [If Yes, STOP here]: Yes MIPS - DC The patient has a history of heart transplant or Left Ventricular Assist Device (LVAD). If yes, STOP here.: No The patient has current or prior documentation of left ventricular ejection fraction (LVEF) less than or equal to 40%, or moderate or severely depressed left ventricular systolic function.: No A. The patient was prescribed or already taking an Angiotensin-Converting Enzyme (CA) Inhibitor, or Angiotensin Receptor Irene (ARB).: No B. The patient was prescribed or already taking a beta-irene. [If Yes to Both A & B, STOP here]: Yes Patient not prescribed/taking CA or ARB, no reason given.: No Patient not prescribed/taking beta-irene, no reason given.: No PROFEE Charge Codes Discharge inpatient/observation: [id number]
--- NOTE | 2024-07-16 17:44 | PC.NURSE ---
Discharge Note Patient A&O, VSS, RA, no complaints of pain/discomfort. Discharge packet reviewed with patient and daughter all questions/concerns addressed by MD Kenr and this RN. Patient able to dress self and pack all belongings with assistance. Patient assisted to wheelchair with FWW and taken down via wheelchair to POV.
== END 2024-07-16 17:30 | disposition home or self-care (01) ==
LOC: ED 15:25 → AC 15:27
PROVIDERS: Admitting Provider Internal Medicine; Emergency Provider Emergency Medicine; Referring Provider Emergency Medicine; Visit Provider Internal Medicine
DX: B34.8 Other viral infections of unspecified site (principal); G93.40 Encephalopathy, unspecified; R53.1 Weakness; R06.02 Shortness of breath; M54.6 Pain in thoracic spine; E78.5 Hyperlipidemia, unspecified; E11.9 Type 2 diabetes mellitus without complications; Z86.73 Personal history of transient ischemic attack (TIA), and cerebral infarction without residual deficits; F03.90 Unspecified dementia, unspecified severity, without behavioral disturbance, psychotic disturbance, mood disturbance, and anxiety; Z91.81 History of falling; Z11.52 Encounter for screening for COVID-19
CPT/HCPCS: 0241U; 36415; 70450; 71045; 71275; 74174; 80053; 81001; 82550; 82607; 82746; 82962; 83605; 83880; 84145; 84443; 84484; 85025; 85610; 85730; 87040; 87077; 87633; 93005; 93010; 96361; 96365; 96372; 97162; 99284; G0378; J0696; J1650; J1815; J2543; Q9967

== ENCOUNTER 2024-10-13 16:21 | Emergency (ER) | payer MEDICARE, MEDICAID, SELFPAY ==
[2024-07-15 18:32] VITALS: BMI 29.8
[2024-10-13 17:11] VITALS: BP 185/84; PULSE 79; RESP 18; TEMP 36.6; O2SAT 97; BMI 26.9
[2024-10-13 18:01] LABS: Add Manual Diff / Slide Review NO; Hematocrit 37.8 % (41-53); Hemoglobin 12.8 g/dL (13.5-17.5); Lymphocytes Absolute Auto 1600 /uL (1100-4500); Mean Corpuscular HGB Conc 33.9 % (30-36); Mean Corpuscular Hemoglobin 33.0 PG (26-34); Mean Corpuscular Volume 97.5 fL (80-100); Platelet Count 200 X10^3/uL (150-400)
[2024-10-13 18:13] LABS: Acetaminophen < 10 ug/mL (10-30); Alanine Aminotransferase 18 IU/L (<50); Albumin 4.9 g/dL (3.5-5.0); Albumin Globulin Ratio 1.5 (1.0-2.8); Alkaline Phosphatase 51 U/L (38-126); Blood Urea Nitrogen 7 mg/dL (9-20); Calcium 9.9 mg/dL (8.4-10.2); Carbon Dioxide 26 mmol/L (22-32); Chloride 95 mmol/L (98-107); Estimated Glomerular Filt Rate > 60 mL/min (>60); Ethanol (ETOH) < 10 mg/dL (<10); Globulin 3.2 g/dL (1.7-4.1); Glucose 108 mg/dL (70-99); HEMOLYSIS < 15 (0-50); Potassium 4.3 mmol/L (3.4-5.1); Salicylate < 1.0 mg/dL (<20); Sodium 131 mmol/L (137-145); Total Protein 8.1 g/dL (6.3-8.2)
[2024-10-13 18:43] LABS: TSH w/ Reflex to FT4 1.55 uIU/mL (0.47-4.68)
[2024-10-13 19:00] LABS: UR Morphine/Opiate cutoff 300 Negative (Negative); Ur Specific Gravity Normal (Normal); Urine MDMA Negative (Negative); Urine Methamphetamines Negative (Negative); Urine Tetrahydrocannabinol Negative (Negative); Urine Tricyclic Antidepressant Negative (Negative)
[2024-10-14 00:24] VITALS: PULSE 64; O2SAT 98
[2024-10-14 00:25] VITALS: BP 156/70; PULSE 63; RESP 20; O2SAT 97
--- NOTE | 2024-10-14 00:29 | ED_ITS ---
HPI - Recheck/Abnormal Lab/Rx General Chief Complaint: Recheck/Abnormal Lab/Rx Stated Complaint: agitated, erratic behavior Time Seen by Provider: 10/14/24 00:26 Source: patient Mode of arrival: Wheelchair History of Present Illness HPI narrative: 83-year-old male patient with a history of dementia, hypertension and dyslipidemia who was brought in by family for history of intermittent episodes of agitation and combativeness with caregivers and family. He then calms down and does not remember. This is after recently moving into an adult [facility]. Related Data Home Medications ?Medication ?Instructions ?Recorded ?Confirmed atorvastatin 80 mg PO BEDTIME 07/15/24 gabapentin 1,200 mg PO TID 07/15/2412/30 metoprolol tartrate 25 mg tablet 12.5 mg PO BID 07/15/24 Previous Rx's ?Medication ?Instructions ?Recorded cefuroxime axetil 500 mg tablet 500 mg PO BID #10 tabs 07/16/24 Allergies Allergy/AdvReac Type Severity Reaction Status Date / Time No Known Drug Allergies Allergy Verified 07/15/23 10:29 Review of Systems Review of Systems ROS Unobtainable: All systems reviewed & are unremarkable except as noted in HPI and below Neurologic Neurologic: Reports as per HPI Psychiatric Psychiatric: Reports as per HPI Patient History Social History household members: family alcohol intake: former Smoking Status: Former smoker alcohol intake frequency: holidays/special occasions only Alcohol type: beer Exam Narrative Exam Narrative: General: Alert oriented times name in town and conversant. No distress. Appears well nourished and well hydrated Craniofacial: No evidence of trauma. Nontender and no swelling. Eyes: PERRLA EOMI conjunctiva clear HEENT: Oropharynx clear with no swelling, exudate or asymmetry of the pharynx. Nares clear. No sinus tenderness Neck: No tenderness or adenopathy. No meningismus. No JVD Lungs: Clear to auscultation with good air movement. No wheezing, rales or rhonchi. No respiratory distress Cardiac: Regular rate and rhythm with no appreciable murmur or gallop Abdomen: Soft, nontender with no distention or masses. Normal bowel sounds. No rebound or guarding Neuro: Alert and oriented x 1 1/2. Cranial nerves, motor, sensory and cerebellar all grossly intact. No focal deficit Skin: Warm and normal color. No rashes Psychological: Normal affect and interaction. No evidence of delusion or psychosis. Normal mood. Initial Vital Signs Initial Vital Signs: Vital Signs Temperature 98 F 10/13/24 17:11 Pulse Rate 79 10/13/24 17:11 Respiratory Rate 18 10/13/24 17:11 Blood Pressure 185/84 H 10/13/24 17:11 Pulse Oximetry 97 10/13/24 17:11 Oxygen Delivery Method Room Air 10/13/24 17:11 Course Orders Ordered: ED Orders 10/13/24 17:21 Consult to [facility] - Punchboard Stuffer Routine 10/13/24 17:48 Acetaminophen Stat Complete Blood Count AUTO DIFF Stat Comprehensive Metabolic Panel Stat Ethanol (ETOH) Stat Salicylate Stat TSH w/ Reflex to FT4 Stat 10/13/24 18:31 Urine Drug Screen, Rapid Stat 10/13/24 18:36 Urine Microscopic Stat Vital Signs Vital signs: Vital Signs - 8 hr 10/13/24 17:11 10/14/24 00:24 10/14/24 00:25 Temperature 98 F Pulse Rate 79 64 Respiratory Rate 18 Blood Pressure 185/84 H 156/70 H Pulse Oximetry 97 98 Oxygen Delivery Method Room Air 10/14/24 00:25 10/14/24 00:30 10/14/24 00:30 Temperature Pulse Rate 63 60 Respiratory Rate 20 20 Blood Pressure 144/56 H Pulse Oximetry 97 98 Oxygen Delivery Method Room Air Room Air MDM - Recheck/Abnormal Lab/Rx Lab Data 10/13/24 17:48 10/13/24 17:48 Labs: Lab Results 10/13/24 10/13/24 10/13/24 Range/Units 17:48 18:31 18:36 WBC 7.5 (4.5-11.0) X10^3/uL RBC 3.88 L (4.5-5.9) X10^6/uL Hgb 12.8 L (13.5-17.5) g/dL Hct 37.8 L (41-53) % MCV 97.5 (80-100) fL MCH 33.0 (26-34) PG MCHC 33.9 (30-36) % RDW 13.5 (11.6-14.8) % Plt Count 200 (150-400) X10^3/uL Neut % (Auto) 65.3 (50-75) % Lymph % (Auto) 21.0 L (25-40) % [place] % (Auto) 11.1 (3-14) % Eos % (Auto) 2.1 (2-4) % Baso % (Auto) 0.5 (0-2) % Neut # (Auto) 4900 (6091-9384) /uL Lymph # (Auto) 1600 (5726-7932) /uL [place] # (Auto) 800 (0-900) /uL Eos # (Auto) 200 (0-450) /uL Baso # (Auto) 0 (0-100) /uL Sodium 131 L (137-145) mmol/L Potassium 4.3 (3.4-5.1) mmol/L Chloride 95 L (98-107) mmol/L Carbon Dioxide 26 (22-32) mmol/L BUN 7 L (9-20) mg/dL Creatinine 0.64 L (0.66-1.25) mg/dL Estimated GFR > 60 (>60) mL/min BUN/Creatinine Ratio 10.9 (6-22) Glucose 108 H (70-99) mg/dL Calcium 9.9 (8.4-10.2) mg/dL Total Bilirubin 0.7 (0.2-1.3) mg/dL AST 30 (17-59) IU/L ALT 18 (<50) IU/L Alkaline Phosphatase 51 (38-126) U/L Total Protein 8.1 (6.3-8.2) g/dL Albumin 4.9 (3.5-5.0) g/dL Globulin 3.2 (1.7-4.1) g/dL Albumin/Globulin Ratio 1.5 (1.0-2.8) TSH 1.55 (0.47-4.68) uIU/mL Urine RBC None seen (0-5/HPF) Urine WBC None seen (0-5/HPF) Ur Squamous Epith Cells None seen (0-5/HPF) Urine Bacteria None seen (None) Vol Urine Centrifuged 10ml (spun) Salicylates < 1.0 (<20) mg/dL U Opiates 300ng/mL cut Negative (Negative) Ur Oxycodone Screen Negative (Negative) Urine Methadone Screen Negative (Negative) Acetaminophen < 10 (10-30) ug/mL Ur Barbiturates Screen Negative (Negative) U Tricyclic Antidepress Negative (Negative) Ur Phencyclidine Scrn Negative (Negative) Ur Amphetamines Screen Negative (Negative) U Methamphetamines Scrn Negative (Negative) Ur MDMA Scrn (Ecstasy) Negative (Negative) U Benzodiazepines Scrn Negative (Negative) Urine Cocaine Screen Negative (Negative) U Marijuana (THC) Screen Negative (Negative) Urine pH Normal (Normal) Urine Specific [place] Normal (Normal) Ethyl Alcohol < 10 (<10) mg/dL Ur Creatinine Normal (Normal) Urine Dip Bedside Urine Glucose Negative Bedside Urine Bilirubin - Negative Bedside Urine Ketone - Negative Urine Specific [place] 1.005 Bedside Urine Occult Blood - Negative Bedside Urine pH 7.0 Bedside Urine Protein - Negative Bedside Urine Urobilinogen +/- 1mg Bedside Urine Nitrite - Negative Bedside Urine Leukocytes - Negative Esterase MDM Narrative Medical decision making narrative: Lab work unremarkable for explaining the patient's agitation. He has typical bouts of confusion and agitation associated with his dementia which is probably Alzheimer's. Today he has been calm all day according to his daughter. There does not seem to be a medical cause behind this. I discussed dementia caregiving techniques with the daughter. Plan is to discuss his environment and care plan with primary care and with the [facility] caregivers. Discharge Plan Departure Patient Disposition: Home Clinical Impression: Dementia with agitation Instructions: Alzheimer Disease: Tips for Caregivers, Alzheimer Dementia Exacerbations Activity Restrictions/Additional Instructions: Plan: Discuss care plan to reduce episodes of confusion and agitation. Discussed with caregivers and primary care. May need alterations somehow in environment and calming techniques. Follow up with primary care Prescriptions: No Action metoprolol tartrate 25 mg tablet 12.5 mg PO BID atorvastatin 80 mg PO BEDTIME gabapentin 1,200 mg PO TID cefuroxime axetil 500 mg tablet 500 mg PO BID Qty: 10 0RF Referrals: Miscellaneous,Doctor, [Primary Care Provider, Medical] Stand Alone Forms: Patient Portal/API
[2024-10-14 00:30] VITALS: BP 144/56; PULSE 60; RESP 20; O2SAT 98
== END 2024-10-14 00:48 | disposition home or self-care (01) ==
PROVIDERS: Family Medicine; Emergency Provider Emergency Medicine
DX: F03.911 Unspecified dementia, unspecified severity, with agitation (principal)
CPT/HCPCS: 36415; 80053; 80305; 80320; 80329; 81003; 81015; 84443; 85025; 99282; 99283; G0480